=== PATIENT | female | born 1995 | race Caucasian/White ===

== ENCOUNTER 2017-02-11 10:19 | Emergency (ER) | payer BC ==
[2017-02-11 10:24] VITALS: BP 116/87; PULSE 86; RESP 20; TEMP 98.4
[2017-02-11] MEDS ORDERED: methylPREDNISolone SOD SUCCI 125 MG/2 ML VIAL IM ONE (10:54)
[2017-02-11] MEDS ORDERED: FAMOTIDINE 20 MG TAB PO STA (10:54)
--- NOTE | 2017-02-11 10:58 | ED ---
Skin/Abscess/FB HPI - General Chief complaint: Skin/Abscess/Foreign Body Stated complaint: Allergic reaction/Hives Time Seen by Provider: 02/11/17 10:35 Source: patient, RN notes reviewed Mode of arrival: ambulatory Limitations: no limitations - History of Present Illness Initial comments: Patient is a 21-year-old female presents to the emergency room for evaluation of rash. Patient states rash began about 2 days ago. Patient states that she has not been outside in any plants. Patient denies new soaps, detergents, body washes, shampoos, perfumes. Patient states that she recently got a new dog about a week ago. Patient denies any past history ALLERGIC reaction to pets. Patient does state that her dog was playing outside and may have gotten into poison andrew. Patient states that she's been the only one in the household with this rash. Patient states she tried taking Benadryl with no relief of symptoms. Patient states the rash is extremely itchy. Patient denies any new medications. Patient denies trying new foods. Patient denies any trouble breathing or swelling of the throat. - Related Data Previous Rx's Medication Instructions Recorded hydrOXYzine HCL [Atarax] 25 mg PO TID PRN #20 tab 02/11/17 predniSONE 10 mg PO DIRECTED #15 tab 02/11/17 Allergies Allergy/AdvReac Type Severity Reaction Status Date / Time codeine Allergy Unknown Verified 02/11/17 10:24 ibuprofen Allergy Unknown Verified 02/11/17 10:24 naproxen Allergy Unknown Verified 02/11/17 10:24 Review of Systems ROS Statement: Those systems with pertinent positive or pertinent negative responses have been documented in the HPI. ROS Other: All systems not noted in ROS Statement are negative. Past Medical History Past Medical History: No Reported History Additional Past Medical History / Comment(s): back pain History of Any Multi-Drug Resistant Organisms: None Reported Past Surgical History: Section Past Anesthesia/Blood Transfusion Reactions: No Reported Reaction Past Psychological History: Anxiety, Depression Additional Psychological History / Comment(s): overdose states unintentional admited to xanax and flexeril when questioned further states took adderal two days ago Smoking Status: Current every day smoker Past Alcohol Use History: Occasional Past Drug Use History: Prescription Drug Abuse Additional Drug Use History / Comment(s): states took some abilify of moms and adderol denies street or recreational drug usage General Exam - General Exam Comments Initial Comments: Sitting in exam room, no acute distress. Limitations: no limitations General appearance: alert, in no apparent distress Head exam: Present: atraumatic, normocephalic, normal inspection Eye exam: Present: normal appearance ENT exam: Present: normal exam Neck exam: Present: normal inspection Respiratory exam: Present: normal lung sounds bilaterally. Absent: respiratory distress Cardiovascular Exam: Present: regular rate, normal rhythm, normal heart sounds Extremities exam: Present: normal inspection Back exam: Present: normal inspection Neurological exam: Present: alert, oriented X3, CN II-XII intact, normal gait Psychiatric exam: Present: normal affect, normal mood Skin exam: Present: warm, dry, urticaria (Multiple urticaria over bilateral arms , abdomen, legs) Course Vital Signs 02/11/17 10:22 Temperature 98.4 F Pulse Rate 86 Respiratory 20 Rate Blood Pressure 116/87 O2 Sat by Pulse 100 Oximetry Medical Decision Making - Medical Decision Making Patient is a 21-year-old female presents to the emergency room for evaluation of rash. Rash consistent with hives or possible contact dermatitis. Patient was sent home with prednisone and Atarax. Advised patient to follow-up with primary care provider. Patient states she understands everything that was discussed with her. Return parameters discussed. Case discussed with Dr. Marie. Disposition Clinical Impression: Urticaria, Contact dermatitis Disposition: HOME SELF-CARE Condition: Good Instructions: Urticaria (ED) Additional Instructions: Begin taking prednisone tomorrow as directed. Take Atarax as needed for itching. Cool showers/baths. Please follow up with primary care provider in 1- 2 days. If any new symptom arises or symptoms worsen, return to ER as soon as possible. Prescriptions: hydrOXYzine HCL [Atarax] 25 mg PO TID PRN #20 tab PRN Reason: Itching predniSONE 10 mg PO DIRECTED #15 tab Referrals: Crispin Wiggins MD [Primary Care Provider] - 1-2 days Time of Disposition: 11:14
== END 2017-02-11 11:21 | disposition home or self-care (01) ==
LOC: EC 10:19
DX: L25.9 Unspecified contact dermatitis, unspecified cause (principal); L50.9 Urticaria, unspecified; F17.200 Nicotine dependence, unspecified, uncomplicated; Z88.5 Allergy status to narcotic agent; Z88.6 Allergy status to analgesic agent
CPT/HCPCS: 99282; 96372; J2930

== ENCOUNTER 2018-12-04 14:56 | Emergency (ER) | payer BC, OTHER ==
[2018-12-04 15:03] VITALS: RESP 18; TEMP 98.3
[2018-12-04 16:12] LABS: Appearance,Urine Cloudy (Clear); Bilirubin,Urine Negative (Negative); Blood,Urine Negative (Negative); Color,Urine Yellow; Glucose,Urine (UA) Negative (Negative); Ketones,Urine Negative (Negative); Leukocyte Esterase,Urine Small (Negative); Mucus,Urine Rare /hpf; Nitrite,Urine Negative (Negative); Protein,Urine Trace (Negative); RBC,Urine 3 /hpf (0-5); Specific Gravity,Urine 1.028 (1.001-1.035); Squamous Epithelial Cell,Urine 21 /hpf (0-4)
--- NOTE | 2018-12-04 16:12 | ED ---
Abdominal Pain HPI - General Chief Complaint: Abdominal Pain Stated Complaint: 18 Weeks preg, not feeling baby move, back pain Time Seen by Provider: 12/04/18 15:12 Source: patient, RN notes reviewed, old records reviewed Mode of arrival: ambulatory Limitations: no limitations - History of Present Illness Initial Comments: Patient is a 23-year-old female, . Patient reports that her FORENSIC SCIENTIST is Dr. Licona. She reports that she recently got out of prison this weekend. She has had previous ultrasounds in early October for this . They confirmed treatment of . She states she is approximately 18 weeks. Patient states that today she's been having immense stress. She complains of some lower back pain. She questions that could be related to where she was sleeping over the weekend. She's been under immense stress as well because her grandfather is in critical care at this time. Patient states she has no vaginal bleeding or discharge. - Related Data Home Medications Medication Instructions Recorded Confirmed Vtd-Qiss-Kuosd Acid 1 cap PO HS 12/04/18 12/04/18 [-U Capsule (formulary)] Previous Rx's Medication Instructions Recorded Cephalexin [Keflex] 500 mg PO BID #14 cap 12/04/18 Allergies Allergy/AdvReac Type Severity Reaction Status Date / Time No Known Allergies Allergy Verified 12/04/18 15:34 Review of Systems ROS Statement: Those systems with pertinent positive or pertinent negative responses have been documented in the HPI. ROS Other: All systems not noted in ROS Statement are negative. Past Medical History Past Medical History: Seizure Disorder Additional Past Medical History / Comment(s): back pain History of Any Multi-Drug Resistant Organisms: None Reported Past Surgical History: Section Past Anesthesia/Blood Transfusion Reactions: No Reported Reaction Past Psychological History: Anxiety, Depression Smoking Status: Current every day smoker Past Alcohol Use History: None Reported Past Drug Use History: Prescription Drug Abuse General Exam - General Exam Comments Initial Comments: 23-year-old female. Alert and oriented. Patient appears in no acute distress. Limitations: no limitations General appearance: alert, in no apparent distress Head exam: Present: atraumatic, normocephalic, normal inspection Eye exam: Present: normal appearance, PERRL, EOMI. Absent: scleral icterus, conjunctival injection, periorbital swelling ENT exam: Present: normal exam, mucous membranes moist Neck exam: Present: normal inspection. Absent: tenderness, meningismus, lymphadenopathy Respiratory exam: Present: normal lung sounds bilaterally. Absent: respiratory distress, wheezes, rales, rhonchi, stridor Cardiovascular Exam: Present: regular rate, normal rhythm, normal heart sounds. Absent: systolic murmur, diastolic murmur, rubs, gallop, clicks GI/Abdominal exam: Present: soft, other (Protuberant abdomen facility 18 weeks .) Extremities exam: Present: normal inspection, full ROM, normal capillary refill. Absent: tenderness, pedal edema, joint swelling, calf tenderness Back exam: Present: normal inspection Neurological exam: Present: alert, oriented X3, CN II-XII intact Psychiatric exam: Present: normal affect, normal mood Skin exam: Present: warm, dry, intact, normal color. Absent: rash Course Vital Signs 12/04/18 14:59 Temperature 98.3 F Pulse Rate 94 Respiratory 18 Rate Blood Pressure 120/74 O2 Sat by Pulse 100 Oximetry - Reevaluation(s) Reevaluation #1: 12/04/18 16:11 I completed transabdominal ultrasound on Patient. heart tones were 1 55 bpm. Fetus was intrauterine and moving all extremities. Patient was pleased with ultrasound imaging. Medical Decision Making - Medical Decision Making 23-year-old female presents emergency department today for concerns of feeling her baby move. She is 18 weeks . She is spent the night in prison and complains some lower back pain. Likely related to where she slept. Patient also reports that she's had no vaginal bleeding or discharge. She does complain the Dr. Licona. At this time Patient is mainly concerned was seeing her baby's heart rate she felt like it didn't move today. I did obtain a ultrasound at bedside myself. Patient still heart tones were 155 beats were minute. Fetus was active and moving. Patient was pleased to seeing these ultrasound reports. She is adamant she has no vaginal bleeding or discharge. She plans to see Dr. Licona next week. I did check a urine sample on the Patient. Urine sample did have some leukocyte esterase and epithelial cells. This time we'll put the Patient on Keflex and with urine culture pending. Discussed Patient with her FORENSIC SCIENTIST and return parameters were discussed. - Lab Data Lab Results 12/04/18 Range/Units 13:52 Urine Color Yellow Urine Appearance Cloudy H (Clear) Urine pH 6.0 (5.0-8.0) Ur Specific [place] 1.028 (1.001-1.035) Urine Protein Trace H (Negative) Urine Glucose (UA) Negative (Negative) Urine Ketones Negative (Negative) Urine Blood Negative (Negative) Urine Nitrite Negative (Negative) Urine Bilirubin Negative (Negative) Urine Urobilinogen 2.0 (<2.0) mg/dL Ur Leukocyte Esterase Small H (Negative) Urine RBC 3 (0-5) /hpf Urine WBC 4 (0-5) /hpf Ur Squamous Epith Cells 21 H (0-4) /hpf Urine Mucus Rare H (None) /hpf Disposition Clinical Impression: 18 weeks gestation of , Asymptomatic bacteriuria during Disposition: HOME SELF-CARE Condition: Good Instructions (If sedation given, give patient instructions): Urinary Tract Inf ection in (ED) Additional Instructions: Patient advised to rest, increase fluid intake. Patient showed take Tylenol for pain. Follow-up with your FORENSIC SCIENTIST. If there is any vaginal bleeding or abnormal discharge please return for reevaluation. Prescriptions: Cephalexin [Keflex] 500 mg PO BID #14 cap Is patient prescribed a controlled substance at d/c from ED?: No Referrals: Evelin Reyes MD [Primary Care Provider] - 1-2 days Time of Disposition: 16:15
[2018-12-04 16:24] VITALS: BP 124/86; PULSE 86
== END 2018-12-04 16:24 | disposition home or self-care (01) ==
LOC: EC 14:56
DX: O99.89 Other specified diseases and conditions complicating pregnancy, childbirth and the puerperium (principal); R82.71 Bacteriuria; M54.5 Low back pain; R10.30 Lower abdominal pain, unspecified; O99.332 Smoking (tobacco) complicating pregnancy, second trimester; F17.200 Nicotine dependence, unspecified, uncomplicated; Z3A.18 18 weeks gestation of pregnancy
CPT/HCPCS: 81001; 99284

== ENCOUNTER 2019-01-07 14:34 | Outpatient (CLI) | payer OTHER ==
[2019-01-07 15:40] VITALS: BP 117/70; PULSE 69; RESP 16; TEMP 97.7
--- NOTE | 2019-01-13 10:12 | P.MSEPDOC ---
Presenting Problems - Arrival Data Date of Arrival on Unit: 01/07/19 Time of Arrival on Unit: 14:35 Mode of Transport: Ambulatory - Complaint OB-Reason for Admission/Chief Complaint: Pain Comment: sharp shooting vaginal pain, lower back pain Medical History - Information : 4 Para: 1 Term: 0 : 0 Abortions: Spontaneous or Elective: 2 Number of Living Children: 1 - Gestational Age Gestational Age by DEDE (wks/days): 23 Weeks and 4 Days - History Complications: Prior Review of Systems - Review of Systems Constitutional: No problems Breast: No problems ENT: No problems Cardiovascular: No problems Respiratory: No problems Gastrointestinal: No problems Genitourinary: No problems Musculoskeletal: No problems Neurological: No problems Skin: No problems Vital Signs - Temperature Temperature: 97.7 F Temperature Source: Temporal Artery Scan - Pulse Right Sitting Brachial Pulse Rate: 69 Pulse Assessment Method: Automatic Cuff - Respirations Respiratory Rate: 16 Oxygen Delivery Method: Room Air O2 Sat by Pulse Oximetry: 98 - Blood Pressure Right Arm Sitting Blood Pressure: 117/70 Blood Pressure Mean: 85 Blood Pressure Source: Automatic Cuff Medical Screen Scoring (Pre) - Cervical Exam Dilation: Exam Deferred Effacement: Exam Deferred Membranes: Intact - Uterine Contractions Frequency: N/A Duration: N/A Intensity: N/A - Maternal Vital Signs Maternal Temperature: N/A Maternal Blood Pressure: N/A Signs of Preeclampsia: N/A Maternal Respirations: N/A - Pain Assessment Pain Location and Character: Lower, Back, Abdomen Pain Scale Used: Numeric (1 - 10) Pain Intensity: 8 Pain Management Goal: 0 Pain Description: Aching, Shooting Pain Radiation Location: vagina Pain Frequency: Intermittent Pain Duration: 16 Pain Duration Units: Hours Pain Behavior: None Exhibited Effects of Pain: 0 Pain Aggravating Factors: None - Maternal Trauma Maternal Trauma: N/A - Assessment Baseline FHR: 145 Heart Rate - NICHD Category: Category I (Normal) = 0 Position: N/A Station: N/A - Total Score Total Score (Pre): 0 - Level of Risk Level of Risk: Low (0-5) Physician Notification (Pre) - Physician Notified Physician Notified Date: 01/07/19 Physician Notified Time: 15:00 Physician/Practitioner Notifed:: dr Last Spoke With: Dr Tremp New Order Received: Yes (discharge with instructions) Disposition - Disposition OB Disposition: Discharge to home Discharge Date: 01/07/19 Discharge Time: 15:10 I agree with the RN Medical Screening Exam: Yes Risk & Benefit of care provided described in d/c instruction: Yes Diagnosis: PELVIC AND PERINEAL PAIN
== END 2019-01-07 15:10 | disposition home or self-care (01) ==
LOC: FBPOP 14:34
PROVIDERS: ATTEND Obstetrics & Gynecology Obstetrics
DX: O26.892 Other specified pregnancy related conditions, second trimester (principal); R10.2 Pelvic and perineal pain; Z3A.23 23 weeks gestation of pregnancy
CPT/HCPCS: 99213

== ENCOUNTER 2019-01-17 13:18 | Emergency (ER) | payer OTHER ==
[2019-01-17 13:23] VITALS: BP 123/76; PULSE 95; RESP 20; TEMP 97.7
[2019-01-17] MEDS ORDERED: predniSONE 50 MG TAB PO STA (13:50)
[2019-01-17] MEDS ORDERED: FAMOTIDINE 20 MG TAB PO STA (13:50)
--- NOTE | 2019-01-17 13:53 | ED ---
Skin/Abscess/FB HPI - General Chief complaint: Skin/Abscess/Foreign Body Stated complaint: Hives 23 weeks preg Time Seen by Provider: 01/17/19 13:30 Source: patient Mode of arrival: ambulatory Limitations: no limitations - History of Present Illness Initial comments: 23-year-old female patient who is 23 weeks presents to the emergency department today for evaluation of hives. Patient states that this started 2 days ago. States she has been taking Benadryl every 6 hours and it does seem to help symptoms for a short time. 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 Patient states she is also been on Flagyl for bacterial vaginosis. This is a first-time she's been on this medication. States this medication is completed. She denies any lip or tongue swelling with this. Denies any shortness of breath. Denies any abdominal pain, nausea, vomiting. Denies any vesicles. Patient denies any recent fever, chills, chest pain, abdominal pain, nausea, vomiting, diarrhea, constipation, back pain, numbness, tingling, dizziness, weakness, hematuria, dysuria, urinary urgency, urinary frequency, headache, visual changes, or any other complaints. - Related Data Home Medications Medication Instructions Recorded Confirmed Caf-Sptc-Gnzmk Acid 1 cap PO HS 12/04/18 01/17/19 [-U Capsule (formulary)] diphenhydrAMINE [Benadryl] 25 - 50 mg PO Q4H PRN 01/17/19 01/17/19 Previous Rx's Medication Instructions Recorded Famotidine [Pepcid] 20 mg PO DAILY #3 tablet 01/17/19 predniSONE 50 mg PO DAILY #3 tab 01/17/19 Allergies Allergy/AdvReac Type Severity Reaction Status Date / Time No Known Allergies Allergy Verified 01/17/19 13:59 Review of Systems ROS Statement: Those systems with pertinent positive or pertinent negative responses have been documented in the HPI. ROS Other: All systems not noted in ROS Statement are negative. Past Medical History Past Medical History: Seizure Disorder Additional Past Medical History / Comment(s): back pain History of Any Multi-Drug Resistant Organisms: None Reported Past Surgical History: Section Past Anesthesia/Blood Transfusion Reactions: No Reported Reaction Past Psychological History: Anxiety, Depression Smoking Status: Current every day smoker Past Alcohol Use History: None Reported Past Drug Use History: None Reported General Exam Limitations: no limitations General appearance: alert, in no apparent distress, other (This is a well- developed, well-nourished adult female patient in no acute distress. Vital signs upon presentation are temperature 97.7F, pulse 95, respirations 20, blood pressure 123/76, pulse ox 98% on room air.) Eye exam: Present: normal appearance, PERRL, EOMI. Absent: scleral icterus, conjunctival injection, periorbital swelling ENT exam: Present: normal exam, normal oropharynx, mucous membranes moist Respiratory exam: Present: normal lung sounds bilaterally. Absent: respiratory distress, wheezes, rales, rhonchi, stridor Cardiovascular Exam: Present: regular rate, normal rhythm, normal heart sounds. Absent: systolic murmur, diastolic murmur, rubs, gallop, clicks GI/Abdominal exam: Present: soft, normal bowel sounds. Absent: distended, tenderness, guarding, rebound, rigid Neurological exam: Present: alert, oriented X3, CN II-XII intact Psychiatric exam: Present: normal affect, normal mood Skin exam: Present: warm, dry, intact, normal color, rash (Urticarial type rash noted to the trunk and face. Lesions are non-petechial, nonvesicular. Minimal surrounding erythema. No drainage noted.) Course Vital Signs 01/17/19 13:20 Temperature 97.7 F Pulse Rate 95 Respiratory 20 Rate Blood Pressure 123/76 O2 Sat by Pulse 98 Oximetry Medical Decision Making - Medical Decision Making 23-year-old female patient presents to the emergency department today for evaluation of urticarial type rash has been present for the last 2 days. She has been taking Benadryl intermittently which does seem to help somewhat. Patient believes this may have been from exposure to new cleaning products or antibiotic she was taking. She is not having any lip or tongue swelling. No evidence of angioedema. No shortness of breath. She will be given a short course of steroids and started on Pepcid. She is urged to continue taking Benadryl every 6 hours as needed. She is instructed to follow-up with her primary care physician for recheck in 1-2 days. Return parameters discussed in detail. She verbalizes understanding and agrees with this plan. Disposition Clinical Impression: Urticaria Disposition: HOME SELF-CARE Condition: Good Instructions (If sedation given, give patient instructions): Urticaria (ED) Additional Instructions: Continue taking Benadryl every 6 hours as needed. Start taking a steroid and Pepcid. Follow-up with your primary care physician for recheck and possible referral for ALLERGY testing. Return to the emergency department immediately for any new, worsening, or concerning symptoms. Prescriptions: Famotidine [Pepcid] 20 mg PO DAILY #3 tablet predniSONE 50 mg PO DAILY #3 tab Is patient prescribed a controlled substance at d/c from ED?: No Referrals: Evelin Reyes MD [Primary Care Provider] - 1-2 days Time of Disposition: 13:52
== END 2019-01-17 14:08 | disposition home or self-care (01) ==
LOC: EC 13:18
DX: O99.712 Diseases of the skin and subcutaneous tissue complicating pregnancy, second trimester (principal); L50.9 Urticaria, unspecified; O99.332 Smoking (tobacco) complicating pregnancy, second trimester; F17.200 Nicotine dependence, unspecified, uncomplicated; Z98.890 Other specified postprocedural states; Z3A.23 23 weeks gestation of pregnancy
CPT/HCPCS: 99282; J7512

== ENCOUNTER → 2019-03-28 | Outpatient (CLI) | payer OTHER ==
--- NOTE | 2019-03-28 14:50 | US ---
EXAMINATION TYPE: US OB >= 14 wk fetus DATE OF EXAM: 03/28/2019 COMPARISON: None CLINICAL HISTORY: Z34.80 SUPERVISION OF OTHER NORMAL US order for growth TECHNIQUE: Transabdominal (TA) GESTATIONAL AGE / DATING Physician Established: (35 weeks/0 days) EDC: 05/02/2019 Dates by LMP: Unknown Dates by First Scan: No prior Dates by Current Scan: (34 weeks/1 days) EDC: 05/08/2019 SURVEY IUP: Single PLACENTA: Anterior PREVIA: No Previa MEHNAZ: 16.6 cm Normal CERVICAL LENGTH (transabdominal: norm > 3.0cm): 3.1 cm BIOMETRY PRESENTATION: Vertex BPD: 8.6 cm 34 weeks / 5 days HC: 31.4 cm 35 weeks / 2 days AC: 29.4 cm 33 weeks / 3 days FL: 6.3 cm 32 weeks / 5 days ESTIMATED WEIGHT IN GRAMS: 2201 grams ESTIMATED WEIGHT IN LBS/OZ: 4 lbs. 14 oz. WEIGHT PERCENTAGE BASED ON ESTABLISHED DATES: 12% HC/AC: 1.07 Normal FL/AC: 21 Normal HEART RATE: 143 bpm RHYTHM: Normal Single live intrauterine gestation is present. Normal cephalad presentation is seen. No cervical thin anshu. No ultrasound evidence for placenta previa. Amniotic fluid index is calculated within normal li mits. biometric measurements are concordant and felt lower limits of normal. IMPRESSION: As above.
== END | disposition home or self-care (01) ==
LOC: RADUSWWP 14:12
PROVIDERS: ATTEND Obstetrics & Gynecology
DX: Z34.80 Encounter for supervision of other normal pregnancy, unspecified trimester (principal)
CPT/HCPCS: 76805

== ENCOUNTER 2019-09-16 23:27 | Emergency (ER) | payer OTHER ==
[2019-09-17 00:06] VITALS: BP 94/69; PULSE 103; RESP 20; TEMP 99.2
== END 2019-09-17 00:54 | disposition left against medical advice (07) ==
LOC: EC 23:27
DX: R10.9 Unspecified abdominal pain (principal); R11.2 Nausea with vomiting, unspecified; R05 Cough; Z53.21 Procedure and treatment not carried out due to patient leaving prior to being seen by health care provider
CPT/HCPCS: 99499

== ENCOUNTER 2020-08-25 14:59 | Emergency (ER) | payer BC, OTHER ==
[2020-08-25 15:06] VITALS: RESP 18
--- NOTE | 2020-08-25 15:31 | ED ---
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 She reports that she did have positive test but does not know how far along she is. Her last menstrual period was July 17. Patient states that she has had no abnormal vaginal bleeding. is a female. Patient states that she's had no dysuria. Denies changes in bowel habits. She plans to follow with Dr. Kingsley. - Related Data Home Medications Medication Instructions Recorded Confirmed No Known Home Medications 08/25/20 08/25/20 Allergies Allergy/AdvReac Type Severity Reaction Status Date / Time No Known Allergies Allergy Verified 08/25/20 16:43 Review of Systems ROS Statement: Those systems with pertinent positive or pertinent negative responses have been documented in the HPI. ROS Other: All systems not noted in ROS Statement are negative. Past Medical History Past Medical History: Seizure Disorder Additional Past Medical History / Comment(s): back pain History of Any Multi-Drug Resistant Organisms: None Reported Past Surgical History: Section Past Anesthesia/Blood Transfusion Reactions: No Reported Reaction Past Psychological History: Anxiety, Depression Past Alcohol Use History: None Reported Past Drug Use History: None Reported General Exam - General Exam Comments Initial Comments: Is a 24-year-old female. No distress Limitations: no limitations General appearance: alert, in no apparent distress Head exam: Present: atraumatic, normocephalic, normal inspection Eye exam: Present: normal appearance, PERRL, EOMI. Absent: scleral icterus, conjunctival injection, periorbital swelling ENT exam: Present: normal exam, mucous membranes moist Neck exam: Present: normal inspection. Absent: tenderness, meningismus, lymphadenopathy Respiratory exam: Present: normal lung sounds bilaterally. Absent: respiratory distress, wheezes, rales, rhonchi, stridor Cardiovascular Exam: Present: regular rate GI/Abdominal exam: Present: soft, tenderness (Minimal left lower quadrant tenderness), normal bowel sounds. Absent: distended, guarding, rebound, rigid External exam: Present: normal external exam Speculum exam: Present: vaginal discharge (faint). Absent: normal speculum exam By manual exam: Present: normal by manual exam. Absent: adnexal mass Extremities exam: Present: normal inspection, full ROM, normal capillary refill. Absent: tenderness, pedal edema, joint swelling, calf tenderness Back exam: Present: normal inspection Neurological exam: Present: alert, oriented X3, CN II-XII intact Psychiatric exam: Present: normal affect, normal mood Course Vital Signs 08/25/20 08/25/20 15:03 17:17 Temperature 99.0 F 98.8 F Pulse Rate 73 67 Respiratory 18 18 Rate Blood Pressure 126/75 121/80 O2 Sat by Pulse 99 100 Oximetry Medical Decision Making - Medical Decision Making 24-year-old female with last menstrual period on July 17 presents emergency room today with left-sided lower abdominal discomfort and cramping. Patient had lab work obtained. She has no vaginal bleeding. No adnexal tenderness on exam did have minimal left-sided lower abdominal tenderness to palpation. Patient has lab work shows Rh+. Serum hCG is 17,000. Ultrasound showed suspected gestational sac within the uterus but there is also noted 1.7 cm left ovarian cyst. Cannot completely exclude ectopic . I discussed the case with Dr. Palaico recommends repeat hCG in 2 days and have prompt follow-up with her in the office. Patient was given a prescription to have her blood work redrawn in 2 days. I discussed return parameters including heavy bleeding or worsening abdominal pain. - Lab Data Result diagrams: 08/25/20 15:59 Lab Results 08/25/20 08/25/20 08/25/20 Range/Units 15:59 15:59 15:59 WBC 7.6 (3.8-10.6) k/uL RBC 4.58 (3.80-5.40) m/uL Hgb 14.3 (11.4-16.0) gm/dL Hct 41.6 (34.0-46.0) % MCV 90.7 (80.0-100.0) fL MCH 31.2 (25.0-35.0) pg MCHC 34.4 (31.0-37.0) g/dL RDW 12.4 (11.5-15.5) % Plt Count 247 (150-450) k/uL MPV 7.5 Neutrophils % 62 % Lymphocytes % 29 % Monocytes % 4 % Eosinophils % 3 % Basophils % 1 % Neutrophils # 4.7 (1.3-7.7) k/uL Lymphocytes # 2.2 (1.0-4.8) k/uL Monocytes # 0.3 (0-1.0) k/uL Eosinophils # 0.2 (0-0.7) k/uL Basophils # 0.1 (0-0.2) k/uL HCG, Quant mIU/mL Urine Color Yellow Urine Appearance Cloudy H (Clear) Urine pH 6.5 (5.0-8.0) Ur Specific [place] 1.023 (1.001-1.035) Urine Protein Trace H (Negative) Urine Glucose (UA) Negative (Negative) Urine Ketones Negative (Negative) Urine Blood Negative (Negative) Urine Nitrite Negative (Negative) Urine Bilirubin Negative (Negative) Urine Urobilinogen 2.0 (<2.0) mg/dL Ur Leukocyte Esterase Large H (Negative) Urine RBC 1 (0-5) /hpf Urine WBC 10 H (0-5) /hpf Ur Squamous Epith Cells 1 (0-4) /hpf Urine Bacteria Rare H (None) /hpf Urine Mucus Many H (None) /hpf Urine HCG, Qual Detected (Not Detectd) Trichomonas Ag (Rapid) (Negative) Blood Type Blood Type Recheck Bld Type Recheck Status 08/25/20 08/25/20 08/25/20 Range/Units 15:59 15:59 17:21 WBC (3.8-10.6) k/uL RBC (3.80-5.40) m/uL Hgb (11.4-16.0) gm/dL Hct (34.0-46.0) % MCV (80.0-100.0) fL MCH (25.0-35.0) pg MCHC (31.0-37.0) g/dL RDW (11.5-15.5) % Plt Count (150-450) k/uL MPV Neutrophils % % Lymphocytes % % Monocytes % % Eosinophils % % Basophils % % Neutrophils # (1.3-7.7) k/uL Lymphocytes # (1.0-4.8) k/uL Monocytes # (0-1.0) k/uL Eosinophils # (0-0.7) k/uL Basophils # (0-0.2) k/uL HCG, Quant 05774.0 mIU/mL Urine Color Urine Appearance (Clear) Urine pH (5.0-8.0) Ur Specific [place] (1.001-1.035) Urine Protein (Negative) Urine Glucose (UA) (Negative) Urine Ketones (Negative) Urine Blood (Negative) Urine Nitrite (Negative) Urine Bilirubin (Negative) Urine Urobilinogen (<2.0) mg/dL Ur Leukocyte Esterase (Negative) Urine RBC (0-5) /hpf Urine WBC (0-5) /hpf Ur Squamous Epith Cells (0-4) /hpf Urine Bacteria (None) /hpf Urine Mucus (None) /hpf Urine HCG, Qual (Not Detectd) Trichomonas Ag (Rapid) Negative (Negative) Blood Type A Positive Blood Type Recheck A Pos Bld Type Recheck Status No - Radiology Data Radiology results: report reviewed Ultrasound findings here to be at too early to visualize intrauterine with spontaneous as an differential an ectopic is not excluded. Serial beta hCG and ultrasound follow-up is advised. Disposition Clinical Impression: Early stage of , Abdominal cramping affecting Disposition: HOME SELF-CARE Condition: Good Instructions (If sedation given, give patient instructions): Abdominal Pain in (ED) Additional Instructions: Advised to repeat hCG levels in 2 days. Follow-up with [employer] Dr. Palacio in 2 days for results. Return to the emergency department if any alarming signs or symptoms occur. Is patient prescribed a controlled substance at d/c from ED?: No Referrals: Evelin Reyes MD [Primary Care Provider] - 1-2 days Ely Palacio DO [Doctor of Osteopathic Medicine] - 1-2 days Time of Disposition: 18:12
[2020-08-25 16:04] LABS: Basophils # (A) 0.1 k/uL (0-0.2); Basophils % (A) 1 %; Eosinophils # (A) 0.2 k/uL (0-0.7); Eosinophils % (A) 3 %; HCT 41.6 % (34.0-46.0); HGB 14.3 gm/dL (11.4-16.0); Lymphocytes # (A) 2.2 k/uL (1.0-4.8); Lymphocytes % (A) 29 %; MCH 31.2 pg (25.0-35.0); MCHC 34.4 g/dL (31.0-37.0); MCV 90.7 fL (80.0-100.0); Mean Platelet Volume 7.5; Monocytes # (A) 0.3 k/uL (0-1.0); Monocytes % (A) 4 %; Neutrophils # (A) 4.7 k/uL (1.3-7.7); Neutrophils % (A) 62 %; Platelet Count 247 k/uL (150-450); RBC 4.58 m/uL (3.80-5.40); RDW 12.4 % (11.5-15.5); WBC 7.6 k/uL (3.8-10.6)
[2020-08-25 16:14] LABS: Appearance,Urine Cloudy (Clear); Bacteria,Urine Rare /hpf; Bilirubin,Urine Negative (Negative); Blood,Urine Negative (Negative); Color,Urine Yellow; Glucose,Urine (UA) Negative (Negative); Ketones,Urine Negative (Negative); Leukocyte Esterase,Urine Large (Negative); Mucus,Urine Many /hpf; Nitrite,Urine Negative (Negative); PH, Urine 6.5 (5.0-8.0); Protein,Urine Trace (Negative); RBC,Urine 1 /hpf (0-5); Specific Gravity,Urine 1.023 (1.001-1.035); Squamous Epithelial Cell,Urine 1 /hpf (0-4); WBC,Urine 10 /hpf (0-5)
--- NOTE | 2020-08-25 16:45 | US ---
EXAMINATION TYPE: Transabdominal DATE OF EXAM: 08/25/2020 4:31 PM COMPARISON: NONE CLINICAL HISTORY: r/o ectopic, left abdominal pain. EXAM PERFORMED: Transabdominal (TA) EXAM MEASUREMENTS: GESTATIONAL AGE / DATING Physician Established: Not yet established Dates by LMP: (5 weeks/4 days) EDC: 04-23-21 Dates by First Scan: No previous this is first scan Dates by Current Scan for: (5 weeks/1 days) EDC: 04/26/21 MATERNAL ANATOMY Uterus: 8.8 x 6.0 x 6.8cm Right Ovary: 3.1 x 1.8 x 2.2cm Left Ovary: 4.3 x 2.4 x 2.5cm Post CDS / Adnexa: wnl Presence of free fluid: no Presence of corpus luteal cyst: 1.9 x 1.3 x 1.5cm Presence of subchorionic bleed: no GESTATION / SURVEY MSD: 1.0 (5 weeks/1 days) Heterogeneous anteverted uterus. Prominent thickened poorly defined endometrium. Anteriorly in the en dometrium there is curvilinear anechoic lesion measuring 8 x 12 x 11 mm could reflect early gestation al sac. No yolk sac or pole. No free fluid. Both ovaries are identified. Peripheral 1.9 cm lesion left ovary could reflect corpus luteal cyst. No suspicious extraovarian adnexal masses. Date of LMP: 07/17/20 Beta HcG (if available): Not available at this time IMPRESSION: Findings favored too early to visualize intrauterine but spontaneous i s in differential and ectopic is not entirely excluded. Serial beta hCG and ultrasound foll ow-up is advised.
[2020-08-25 17:24] VITALS: BP 121/80; PULSE 67; TEMP 98.8
[2020-08-26 15:05] LABS: C. trachomatis,PCR Negative (Neg,Equiv); Chlamydia trachomatis Source Vagina; N. gonorrhoeae,PCR Negative (Neg,Equiv); Neisseria Source Vagina
== END 2020-08-25 18:18 | disposition home or self-care (01) ==
LOC: EC 14:59
DX: O34.80 Maternal care for other abnormalities of pelvic organs, unspecified trimester (principal); N83.202 Unspecified ovarian cyst, left side; R10.32 Left lower quadrant pain; Z3A.00 Weeks of gestation of pregnancy not specified
CPT/HCPCS: 36415; 76801; 81001; 81025; 84702; 85025; 86900; 86901; 87070; 87491; 87591; 87808; 99284

== ENCOUNTER → 2020-08-27 | Outpatient (CLI) | payer OTHER | END | disposition home or self-care (01) | LOC: LABWHC1 11:17 | PROVIDERS: ATTEND Physician Assistant Medical | DX: O20.0 Threatened abortion (principal) | CPT/HCPCS: 36415; 84702 ==

== ENCOUNTER 2020-08-29 14:45 | Emergency (ER) | payer OTHER ==
[2020-08-29 14:50] VITALS: RESP 18
--- NOTE | 2020-08-29 15:06 | ED ---
General Adult HPI - General Chief complaint: Vaginal Bleeding Stated complaint: Revisit 5 wks preg,Vaginal Bleeding Time Seen by Provider: 08/29/20 14:53 Source: patient Mode of arrival: ambulatory Limitations: no limitations - History of Present Illness Initial comments: 24 year-old female patient who is approximately 5 weeks presents to the emergency department today for evaluation of possible vaginal bleeding. Patient states that she was seen and evaluated here 4 days ago for left lower quadrant abdominal discomfort. States that she did have labs and ultrasound performed and results were questionable for possible miscarriage versus early . She did have repeat hCG drawn 2 days ago which did show an increase to 25,000 from 17,000. States that she was instructed to have another hCG drawn today, but the lab was closed. She states she started to have a light pink on the toilet paper with wiping so she became concerned and presented here for further evaluation. She denies any current abdominal pain or cramping. Denies hematuria, dysuria, urinary frequency, urinary urgency. States she has had sexual intercourse since her visit on Monday. Patient denies any recent rash, fever, chills, cough, shortness of breath, chest pain, nausea, vomiting, diarrhea, constipation, back pain, numbness, tingling, dizziness, weakness, headache, visual changes, or any other complaints. - Related Data Previous Rx's Medication Instructions Recorded Cephalexin [Keflex] 500 mg PO Q6H #28 cap 08/29/20 Allergies Allergy/AdvReac Type Severity Reaction Status Date / Time No Known Allergies Allergy Verified 08/29/20 14:50 Review of Systems ROS Statement: Those systems with pertinent positive or pertinent negative responses have been documented in the HPI. ROS Other: All systems not noted in ROS Statement are negative. Past Medical History Past Medical History: Seizure Disorder Additional Past Medical History / Comment(s): back pain History of Any Multi-Drug Resistant Organisms: None Reported Past Surgical History: Section Past Anesthesia/Blood Transfusion Reactions: No Reported Reaction Past Psychological History: Anxiety, Depression Smoking Status: Current every day smoker Past Alcohol Use History: None Reported Past Drug Use History: None Reported General Exam Limitations: no limitations General appearance: alert, in no apparent distress, other (Physical well- developed, well-nourished adult female patient in no acute distress. Vital signs upon presentation are temperature 98.4F, pulse 74, respirations 18, blood pressure 127/79, pulse ox 100% on room air.) ENT exam: Present: normal exam, normal oropharynx, mucous membranes moist Respiratory exam: Present: normal lung sounds bilaterally. Absent: respiratory distress, wheezes, rales, rhonchi, stridor Cardiovascular Exam: Present: regular rate, normal rhythm, normal heart sounds. Absent: systolic murmur, diastolic murmur, rubs, gallop, clicks GI/Abdominal exam: Present: soft, normal bowel sounds. Absent: distended, tenderness, guarding, rebound, rigid Neurological exam: Present: alert, oriented X3, CN II-XII intact Psychiatric exam: Present: normal affect, normal mood Skin exam: Present: warm, dry, intact, normal color. Absent: rash Course Vital Signs 08/29/20 08/29/20 14:47 17:00 Temperature 98.4 F 98.2 F Pulse Rate 74 70 Respiratory 18 18 Rate Blood Pressure 127/79 124/72 O2 Sat by Pulse 100 99 Oximetry Medical Decision Making - Medical Decision Making 24-year-old female patient who is G5, P2 with one elective and one spontaneous in the past presents to the emergency department today for evaluation of vaginal bleeding. Patient was seen and evaluated 4 days ago for left pelvic pain had hCG count of 17,000, questionable early on ultrasound. She had repeat hCG done 2 days ago which did show an increase to around 25,000. She returns today for light vaginal bleeding, she noticed slight pink discoloration to the toilet paper when she wiped. Physical examination revealed a soft nontender abdomen. Did review the results from last visit showed negative genital culture, negative STI testing. Repeat hCG today was 43,164. Urinalysis showed a cloudy appearance with trace protein, trace blood, positive nitrite, moderate leukocyte esterase, 8 white blood cells, 9 squamous epithelial cells, occasional bacteria. Ultrasound was repeated today did show possible early gestational sac. No adnexal mass to suggest ectopic. Patient is having no pain today. I did discuss findings and results with the patient. We did discuss threatened versus very early . She'll be treated with Keflex for urinary tract infection. She is given prescription to have repeat hCG drawn in 2 days, results will go to Dr. Palacio. She is instructed to follow-up with [facility] for recheck as soon as possible. Return parameters were discussed in detail. She verbalizes understanding and agrees with this plan. - Lab Data Lab Results 08/29/20 08/29/20 08/29/20 Range/Units 15:24 15:34 15:39 HCG, Quant 18239.1 mIU/mL Urine Color Yellow Urine Appearance Cloudy H (Clear) Urine pH 5.5 (5.0-8.0) Ur Specific [place] 1.029 (1.001-1.035) Urine Protein Trace H (Negative) Urine Glucose (UA) Negative (Negative) Urine Ketones Negative (Negative) Urine Blood Trace H (Negative) Urine Nitrite Positive H (Negative) Urine Bilirubin Negative (Negative) Urine Urobilinogen <2.0 (<2.0) mg/dL Ur Leukocyte Esterase Moderate H (Negative) Urine RBC 1 (0-5) /hpf Urine WBC 8 H (0-5) /hpf Ur Squamous Epith Cells 9 H (0-4) /hpf Urine Bacteria Occasional H (None) /hpf Urine Mucus Many H (None) /hpf Blood Type A Positive Blood Type Recheck A Pos Bld Type Recheck Status No - Radiology Data Radiology results: report reviewed, image reviewed Ultrasound was obtained. Report was reviewed in its entirety. Impression by Dr. Stewart shows possible early intrauterine . Follow-up recommended in 14 days to confirm a living fetus. No adnexal mass. Disposition Clinical Impression: Vaginal bleeding during , Threatened Disposition: HOME SELF-CARE Condition: Good Instructions (If sedation given, give patient instructions): Threatened Miscarriage (ED) Additional Instructions: Have repeat hCG performed in 2 days. Follow-up with your [facility] [facility] for recheck as soon as possible. Return to the emergency department for any new, worsening, or concerning symptoms. Prescriptions: Cephalexin [Keflex] 500 mg PO Q6H #28 cap Is patient prescribed a controlled substance at d/c from ED?: No Referrals: Evelin Reyes MD [Primary Care Provider] - 1-2 days Time of Disposition: 17:29
[2020-08-29 15:57] LABS: Appearance,Urine Cloudy (Clear); Bacteria,Urine Occasional /hpf; Bilirubin,Urine Negative (Negative); Blood,Urine Trace (Negative); Color,Urine Yellow; Glucose,Urine (UA) Negative (Negative); Ketones,Urine Negative (Negative); Leukocyte Esterase,Urine Moderate (Negative); Mucus,Urine Many /hpf; Nitrite,Urine Positive (Negative); PH, Urine 5.5 (5.0-8.0); Protein,Urine Trace (Negative); RBC,Urine 1 /hpf (0-5); Specific Gravity,Urine 1.029 (1.001-1.035); Squamous Epithelial Cell,Urine 9 /hpf (0-4); Urobilinogen,Urine <2.0 mg/dL (<2.0); WBC,Urine 8 /hpf (0-5)
[2020-08-29] MEDS ORDERED: CEPHALEXIN 500MG STARTER PACK 4 CAP BTL PO STA (16:42)
--- NOTE | 2020-08-29 17:26 | US ---
EXAMINATION TYPE: Transabdominal DATE OF EXAM: 08/29/2020 5:14 PM COMPARISON: NONE CLINICAL HISTORY: Vaginal bleeding early . light spotting, UTI, no pain EXAM PERFORMED: Transabdominal (TA) EXAM MEASUREMENTS: GESTATIONAL AGE / DATING Physician Established: Not yet established Dates by LMP: (6 weeks/1 days) EDC: 04/23/21 Dates by First Scan: (5 weeks/5 days) EDC: 04/26/21 - MSD Dates by Current Scan for: (6 weeks/3 days) EDC: 04/21/21 - MSD MATERNAL ANATOMY Uterus: 9.1 x 6.3 x 6.6cm Right Ovary: 3.0 x 1.4 x 1.5cm Left Ovary: 4.4 x 2.5 x 2.9cm Post CDS / Adnexa: free fluid posterior cul-de-sac/right adnexa Presence of free fluid: yes Presence of corpus luteal cyst: yes, left ovary = 2.4 x 2.3 x 2.5cm GESTATION / SURVEY MSD: 1.5cm (6 weeks/3 days) Yolk Sac (normal less than 6mm): not seen no evidence of pole at this time Date of LMP: 07/17/20 Beta HcG (if available): 53386 Heterogeneous uterus. Anechoic area within uterus ?gestational sac, no evidence of pole or yolk sac at this time. Recommend short term follow up IMPRESSION: Possible early intrauterine . Follow-up recommended in 14 days to confirm a living fetus. No adnexal mass.
[2020-08-29 17:40] VITALS: BP 124/72; PULSE 70; TEMP 98.2
== END 2020-08-29 17:41 | disposition home or self-care (01) ==
LOC: EC 14:45
DX: O20.0 Threatened abortion (principal); O20.9 Hemorrhage in early pregnancy, unspecified; O99.331 Smoking (tobacco) complicating pregnancy, first trimester; F17.200 Nicotine dependence, unspecified, uncomplicated; Z3A.01 Less than 8 weeks gestation of pregnancy
CPT/HCPCS: 36415; 76801; 81001; 84702; 86900; 86901; 99284

== ENCOUNTER → 2020-08-31 | Outpatient (CLI) | payer OTHER | END | disposition home or self-care (01) | LOC: LABWHC1 11:14 | PROVIDERS: ATTEND Nurse Practitioner | DX: Z34.81 Encounter for supervision of other normal pregnancy, first trimester (principal) | CPT/HCPCS: 36415; 84702 ==

== ENCOUNTER 2020-12-20 08:49 | Emergency (ER) | payer OTHER ==
[2020-12-20 08:59] VITALS: BP 112/74; PULSE 81; RESP 18; TEMP 97.9
[2020-12-20] MEDS ORDERED: ACETAMINOPHEN TAB 500 MG TAB PO STA (09:10)
--- NOTE | 2020-12-20 10:05 | ED ---
URI HPI - General Chief Complaint: Upper Respiratory Infection Stated Complaint: Covid exposure, 22wks preg Time Seen by Provider: 12/20/20 08:59 Source: patient, RN notes reviewed, old records reviewed Mode of arrival: ambulatory Limitations: no limitations - History of Present Illness Initial Comments: This is a 25 year old female whom is 20 weeks . She reports that she has had 3 days of left ear ache, sore throat and mild headache. She reports she has covid exposure and wants to be tested. She denies cough, shortness of breath and fever. She reports to taking tylenol. - Related Data Previous Rx's Medication Instructions Recorded Cephalexin [Keflex] 500 mg PO Q6H #28 cap 08/29/20 Fluticasone Nasal [place] [Flonase 1 spray EA NOSTRIL DAILY #1 bottle 12/20/20 Nasal [place]] Allergies Allergy/AdvReac Type Severity Reaction Status Date / Time No Known Allergies Allergy Verified 12/20/20 08:58 Review of Systems ROS Statement: Those systems with pertinent positive or pertinent negative responses have been documented in the HPI. ROS Other: All systems not noted in ROS Statement are negative. Past Medical History Past Medical History: Seizure Disorder Additional Past Medical History / Comment(s): back pain History of Any Multi-Drug Resistant Organisms: None Reported Past Surgical History: Section Past Anesthesia/Blood Transfusion Reactions: No Reported Reaction Past Psychological History: Anxiety, Depression Smoking Status: Current every day smoker Past Alcohol Use History: None Reported Past Drug Use History: None Reported General Exam - General Exam Comments Initial Comments: 25 year old female, no distress. Limitations: no limitations General appearance: alert, in no apparent distress Head exam: Present: atraumatic, normocephalic, normal inspection Eye exam: Present: normal appearance, PERRL, EOMI. Absent: scleral icterus, conjunctival injection, periorbital swelling ENT exam: Present: normal exam, mucous membranes moist. Absent: TM's normal bilaterally (fluid behind left TM. No erythema. ) Neck exam: Present: normal inspection. Absent: tenderness, meningismus, lymphadenopathy Respiratory exam: Present: normal lung sounds bilaterally. Absent: respiratory distress, wheezes, rales, rhonchi, stridor Cardiovascular Exam: Present: regular rate, normal rhythm, normal heart sounds. Absent: systolic murmur, diastolic murmur, rubs, gallop, clicks GI/Abdominal exam: Present: soft, normal bowel sounds. Absent: distended, tenderness, guarding, rebound, rigid Extremities exam: Present: normal inspection, full ROM, normal capillary refill. Absent: tenderness, pedal edema, joint swelling, calf tenderness Back exam: Present: normal inspection Neurological exam: Present: alert, oriented X3, CN II-XII intact Psychiatric exam: Present: normal affect, normal mood Skin exam: Present: warm, dry, intact, normal color. Absent: rash Course Vital Signs 12/20/20 08:56 Temperature 97.9 F Pulse Rate 81 Respiratory 18 Rate Blood Pressure 112/74 O2 Sat by Pulse 100 Oximetry Medical Decision Making - Medical Decision Making 25 year old female with ear pain, sore throat and covid exposure. She is 20 weeks . She has minimal fluid behind left TM. Advised to start de congestant nasal spray. She is advised to continue tylenol. Currently covid test is negative. Advised this can be a false negative as her symptoms are early. Discussed strict return parameters. - Lab Data Lab Results 12/20/20 Range/Units 09:24 Coronavirus (PCR) Not Detected (Not Detectd) Disposition Clinical Impression: Otalgia of right ear, Pharyngitis Disposition: HOME SELF-CARE Condition: Good Instructions (If sedation given, give patient instructions): Upper Respiratory Infection (ED) Additional Instructions: Take Tylenol for pain. Patient should use nasal spray decongestant. Follow up with PCP. If you have further worsening symptoms such as severe shortness of breath or cough return to ED. Prescriptions: Fluticasone Nasal [place] [Flonase Nasal [place]] 1 spray EA NOSTRIL DAILY #1 bottle Is patient prescribed a controlled substance at d/c from ED?: No Referrals: None,Stated [Primary Care Provider] - 1-2 days Nina Fish MD [REFERRING] - 1-2 days Time of Disposition: 10:00
== END 2020-12-20 10:17 | disposition home or self-care (01) ==
LOC: EC 08:49
DX: O99.512 Diseases of the respiratory system complicating pregnancy, second trimester (principal); J02.9 Acute pharyngitis, unspecified; H92.02 Otalgia, left ear; O99.891 Other specified diseases and conditions complicating pregnancy; O99.332 Smoking (tobacco) complicating pregnancy, second trimester; F17.200 Nicotine dependence, unspecified, uncomplicated; Z20.822 Contact with and (suspected) exposure to COVID-19; Z3A.20 20 weeks gestation of pregnancy
CPT/HCPCS: 87635; 99284

== ENCOUNTER 2023-02-22 12:00 | Emergency (ER) | payer OTHER ==
[2023-02-22 12:17] VITALS: RESP 18
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
--- NOTE | 2023-02-22 12:54 | XR ---
EXAMINATION TYPE: XR knee complete RT DATE OF EXAM: 02/22/2023 CLINICAL HISTORY: pain TECHNIQUE: Three views of the right knee are obtained. COMPARISON: None. FINDINGS: There is no acute fracture/dislocation. The tri-compartment joint spaces appear within no rmal limits. The overlying soft tissue appears unremarkable. IMPRESSION: There is no acute fracture or dislocation.ICD 10 NO FRACTURE, INITIAL EVALUATION
[2023-02-22 14:36] VITALS: BP 110/78; PULSE 70; TEMP 98.2
== END 2023-02-22 14:35 | disposition home or self-care (01) ==
LOC: EC 12:00
DX: M25.561 Pain in right knee (principal); Z86.59 Personal history of other mental and behavioral disorders; F17.290 Nicotine dependence, other tobacco product, uncomplicated; W21.31XA Struck by shoe cleats, initial encounter; Y93.64 Activity, baseball
CPT/HCPCS: 99283

== ENCOUNTER 2023-03-08 10:19 | Emergency (ER) | payer OTHER ==
--- NOTE | 2023-03-08 10:51 | ED ---
Abdominal Pain HPI - General Chief Complaint: Abdominal Pain Stated Complaint: abd pain, nausea Time Seen by Provider: 03/08/23 10:39 Source: patient, RN notes reviewed Mode of arrival: ambulatory Limitations: no limitations - History of Present Illness Initial Comments: Patient is a 27 year old female presenting to the ER with a chief complaint of abdominal pain. Patient states this has been going on for a couple of days and describes it as achy 3/10 pain. She endorses associated nausea but denies vomiting. Patient reports she has been using a heating pad with slight relief. Patient states she stopped taking her control about 5 months ago and her periods have been irregular since. She is unsure of her status. Denies abnormal bleeding or cramping. Denies history of abdominal surgeries besides 3 c-sections. Patient admits to having occasional constipation. Denies fevers, chills, nightsweats, shortness of breath, chest pain, or diarrhea. - Related Data Previous Rx's Medication Instructions Recorded Cephalexin [Keflex] 500 mg PO Q6H #28 cap 08/29/20 Fluticasone Nasal [place] [Flonase 1 spray EA NOSTRIL DAILY #1 bottle 12/20/20 Nas[place]] Allergies Allergy/AdvReac Type Severity Reaction Status Date / Time No Known Allergies Allergy Verified 03/08/23 10:29 Review of Systems ROS Statement: Those systems with pertinent positive or pertinent negative responses have been documented in the HPI. ROS Other: All systems not noted in ROS Statement are negative. Past Medical History Past Medical History: Seizure Disorder Additional Past Medical History / Comment(s): back pain History of Any Multi-Drug Resistant Organisms: None Reported Past Surgical History: Section Past Anesthesia/Blood Transfusion Reactions: No Reported Reaction Past Psychological History: Anxiety, Depression Smoking Status: Vaper Past Alcohol Use History: None Reported Past Drug Use History: None Reported General Exam Limitations: no limitations General appearance: alert, in no apparent distress Respiratory exam: Present: normal lung sounds bilaterally. Absent: respiratory distress, wheezes, rales, rhonchi, stridor Cardiovascular Exam: Present: regular rate, normal rhythm, normal heart sounds. Absent: systolic murmur, diastolic murmur, rubs, gallop, clicks GI/Abdominal exam: Present: soft, tenderness (mild LLQ/RLQ), normal bowel sounds Skin exam: Present: warm, dry, intact, normal color. Absent: rash Course Vital Signs 03/08/23 10:27 Temperature 98.4 F Pulse Rate 72 Respiratory 18 Rate Blood Pressure 116/70 O2 Sat by Pulse 98 Oximetry Medical Decision Making - Medical Decision Making Was pt. sent in by a medical professional or institution (, JOSE CARLOS, REINFORCING IRON AND REBAR WORKERS, urgent care, hospital, or group home...) When possible be specific @ -No Did you speak to anyone other than the patient for history (EMS, parent, family, police, friend...)? What history was obtained from this source @ -No Did you review nursing and triage notes (agree or disagree)? Why? @ -I reviewed and agree with nursing and triage notes Were old charts reviewed (outside hosp., previous admission, EMS record, old EKG, old radiological studies, urgent care reports/EKG's, group home records)? Report findings @ -No old charts were reviewed Differential Diagnosis (chest pain, altered mental status, abdominal pain women, abdominal pain men, vaginal bleeding, weakness, fever, dyspnea, syncope, headache, dizziness, GI bleed, back pain, seizure, CVA, palpatations, mental health, musculoskeletal)? @ -Differential Abdominal Pain Women: Appendicitis, Cholecystitis, diverticulosis, ischemic bowel, pancreatitis, hepatitis, UTI, gastroenteritis, AAA, incarcerated hernia, bowel obstruction, constipation, inflammatory bowel, hepatitis, peptic ulcer disease, splenic infarction, perforated viscus, vulvitis, ovarian torsion, PID, kidney stone, placenta abruption, this is not meant to be an all-inclusive listble EKG interpreted by me (3pts min.). @ -None X-rays interpreted by me (1pt min.). @ -None done CT interpreted by me (1pt min.). @ -None done U/S interpreted by me (1pt. min.). @ -Ultrasound shows early gestational sac What testing was considered but not performed or refused? (CT, X-rays, U/S, labs)? Why? @ -None What meds were considered but not given or refused? Why? @ -None Did you discuss the management of the patient with other professionals (professionals i.e. JOSE CARLOS Parr, REINFORCING [employer] AND REBAR WORKERS, lab, RT, psych nurse, social work instructor, boat loader helper, teacher, ship's officer, manager of case)? Give summary @ -No Was smoking cessation discussed for >3mins.? @ -No Was critical care preformed (if so, how long)? @ -No Were there social determinants of health that impacted care today? How? (Homelessness, low income, unemployed, alcoholism, drug addiction, transportation, low edu. Level, literacy, decrease access to med. care, halfway, rehab)? @ -No Was there de-escalation of care discussed even if they declined (Discuss DNR or withdrawal of care, Hospice)? DNR status @ -No What co-morbidities impacted this encounter? (DM, HTN, Smoking, COPD, CAD, Cancer, CVA, ARF, Chemo, Hep., AIDS, mental health diagnosis, sleep apnea, morbid obesity)? @ -None Was patient admitted / discharged? Hospital course, mention meds given and route, prescriptions, significant lab abnormalities, going to OR and other pertinent info. @ -Discharge patient started have positive urine hCG surrounding shows possible early gestational sac. Patient will follow with CONTRACTING ANALYST return parameters were discussed patient has no comp acute fractures. Patient does not have any severe tenderness or localized pain concerning for ectopic she will have recheck in 48 hours. Undiagnosed new problem with uncertain prognosis? @ -No Drug Therapy requiring intensive monitoring for toxicity (Heparin, Nitro, Insulin, Cardizem)? @ -No Were any procedures done? @ -No Diagnosis/symptom? @ -, abdominal pain Acute, or Chronic, or Acute on Chronic? @ -Acute Uncomplicated (without systemic symptoms) or Complicated (systemic symptoms)? @ -Uncomplicated Side effects of treatment? @ -No Exacerbation, Progression, or Severe Exacerbation? @ -No Poses a threat to life or bodily function? How? (Chest pain, [place], [place], pneumonia, PE, COPD, DKA, ARF, appy, cholecystitis, CVA, Diverticulitis, Homicidal, Suicidal, threat to staff... and all critical care pts) @ -No - Lab Data Result diagrams: 03/08/23 10:47 03/08/23 10:47 Lab Results 03/08/23 03/08/23 03/08/23 Range/Units 10:47 10:47 10:47 WBC 6.1 (3.8-10.6) k/uL RBC 4.42 (3.80-5.40) m/uL Hgb 13.0 (11.4-16.0) gm/dL Hct 38.7 (34.0-46.0) % MCV 87.5 (80.0-100.0) fL MCH 29.3 (25.0-35.0) pg MCHC 33.5 (31.0-37.0) g/dL RDW 12.8 (11.5-15.5) % Plt Count 285 (150-450) k/uL MPV 7.3 Sodium (137-145) mmol/L Potassium (3.5-5.1) mmol/L Chloride (98-107) mmol/L Carbon Dioxide (22-30) mmol/L Anion Gap mmol/L BUN (7-17) mg/dL Creatinine (0.52-1.04) mg/dL Est GFR (CKD-EPI)AfAm (>60 ml/min/1.73 sqM) Est GFR (CKD-EPI)NonAf (>60 ml/min/1.73 sqM) Glucose (74-99) mg/dL Calcium (8.4-10.2) mg/dL Total Bilirubin (0.2-1.3) mg/dL AST (14-36) U/L ALT (4-34) U/L Alkaline Phosphatase (38-126) U/L Total Protein (6.3-8.2) g/dL Albumin (3.5-5.0) g/dL Amylase (30-110) U/L Lipase (23-300) U/L HCG, Quant mIU/mL Urine Color Yellow Urine Appearance Clear (Clear) Urine pH 7.0 (5.0-8.0) Ur Specific [place] 1.014 (1.001-1.035) Urine Protein Negative (Negative) Urine Glucose (UA) Negative (Negative) Urine Ketones Negative (Negative) Urine Blood Negative (Negative) Urine Nitrite Negative (Negative) Urine Bilirubin Negative (Negative) Urine Urobilinogen <2.0 (<2.0) mg/dL Ur Leukocyte Esterase Negative (Negative) Urine HCG, Qual Detected (Not Detectd) 03/08/23 03/08/23 Range/Units 10:47 13:35 WBC (3.8-10.6) k/uL RBC (3.80-5.40) m/uL Hgb (11.4-16.0) gm/dL Hct (34.0-46.0) % MCV (80.0-100.0) fL MCH (25.0-35.0) pg MCHC (31.0-37.0) g/dL RDW (11.5-15.5) % Plt Count (150-450) k/uL MPV Sodium 137 (137-145) mmol/L Potassium 4.0 (3.5-5.1) mmol/L Chloride 104 (98-107) mmol/L Carbon Dioxide 24 (22-30) mmol/L Anion Gap 9 mmol/L BUN 8 (7-17) mg/dL Creatinine 0.64 (0.52-1.04) mg/dL Est GFR (CKD-EPI)AfAm >90 (>60 ml/min/1.73 sqM) Est GFR (CKD-EPI)NonAf >90 (>60 ml/min/1.73 sqM) Glucose 108 H (74-99) mg/dL Calcium 9.4 (8.4-10.2) mg/dL Total Bilirubin 0.8 (0.2-1.3) mg/dL AST 23 (14-36) U/L ALT 22 (4-34) U/L Alkaline Phosphatase 53 (38-126) U/L Total Protein 7.2 (6.3-8.2) g/dL Albumin 4.3 (3.5-5.0) g/dL Amylase 42 (30-110) U/L Lipase 59 (23-300) U/L HCG, Quant 44763.7 mIU/mL Urine Color Urine Appearance (Clear) Urine pH (5.0-8.0) Ur Specific [place] (1.001-1.035) Urine Protein (Negative) Urine Glucose (UA) (Negative) Urine Ketones (Negative) Urine Blood (Negative) Urine Nitrite (Negative) Urine Bilirubin (Negative) Urine Urobilinogen (<2.0) mg/dL Ur Leukocyte Esterase (Negative) Urine HCG, Qual (Not Detectd) Disposition Clinical Impression: Disposition: HOME SELF-CARE Condition: Stable Instructions (If sedation given, give patient instructions): (ED) Additional Instructions: Please return to the Emergency Department if symptoms worsen or any other concerns. Is patient prescribed a controlled substance at d/c from ED?: No Referrals: None,Stated [Primary Care Provider] - 1-2 days Time of Disposition: 14:34
[2023-03-08 10:57] LABS: HCT 38.7 % (34.0-46.0); MCH 29.3 pg (25.0-35.0); MCHC 33.5 g/dL (31.0-37.0); MCV 87.5 fL (80.0-100.0); Mean Platelet Volume 7.3; Platelet Count 285 k/uL (150-450); RBC 4.42 m/uL (3.80-5.40); RDW 12.8 % (11.5-15.5); WBC 6.1 k/uL (3.8-10.6)
[2023-03-08 10:59] LABS: Appearance,Urine Clear (Clear); Bilirubin,Urine Negative (Negative); Blood,Urine Negative (Negative); Color,Urine Yellow; Glucose,Urine (UA) Negative (Negative); Ketones,Urine Negative (Negative); Leukocyte Esterase,Urine Negative (Negative); Nitrite,Urine Negative (Negative); Protein,Urine Negative (Negative); Specific Gravity,Urine 1.014 (1.001-1.035); Urobilinogen,Urine <2.0 mg/dL (<2.0)
[2023-03-08 11:10] LABS: ALT 22 U/L (4-34); AST 23 U/L (14-36); African American GFR (CKD) >90 (>60 ml/min/1.73 sqM); Albumin 4.3 g/dL (3.5-5.0); Alkaline Phosphatase 53 U/L (38-126); Amylase 42 U/L (30-110); Anion Gap 9 mmol/L; Blood Urea Nitrogen 8 mg/dL (7-17); Calcium 9.4 mg/dL (8.4-10.2); Carbon Dioxide 24 mmol/L (22-30); Chloride 104 mmol/L (98-107); Glucose 108 mg/dL (74-99); Lipase 59 U/L (23-300); Non-African American GFR(CKD) >90 (>60 ml/min/1.73 sqM); Sodium 137 mmol/L (137-145); Total Bilirubin 0.8 mg/dL (0.2-1.3); Total Protein 7.2 g/dL (6.3-8.2)
--- NOTE | 2023-03-08 14:37 | US ---
EXAMINATION TYPE: Transabdominal DATE OF EXAM: 03/08/2023 11:48 AM COMPARISON: NONE CLINICAL INDICATION: Female, 27 years old with history of pain; Unknown LMP. Patient states seen maribeth nt line in test. EXAM PERFORMED: Transvaginal (TV) and Transabdominal (TA) EXAM MEASUREMENTS: GESTATIONAL AGE / DATING Physician Established: Not yet established Dates by LMP: LMP unknown Dates by First Scan: No previous this is first scan Dates by Current Scan for: ( 5 weeks/1 days) EDC: 11/07/2023 MATERNAL ANATOMY Uterus: 11.1 x 7.2 x 5.1 cm Right Ovary: 4.0 x 3.0 x 2.9 cm Left Ovary: 3.0 x 1.9 x 1.3 cm Post CDS / Adnexa: free fluid adjacent to right ovary and in left adnexa Presence of free fluid: no Presence of corpus luteal cyst: right = 2.4 x 2.5 x 2.2 cm Presence of subchorionic bleed: no GESTATION / SURVEY CRL: Not visualized MSD: 1.1 cm (5 weeks/1 days) Yolk Sac (normal less than 6mm): not visualized IUP: Gestational sac only visualized within endometrium Date of LMP: Unknown, Beta HcG (if available): Not available at this time Gestational sac identified within the endometrium without visualization of a yolk sac or pole. IMPRESSION: Small anechoic intrauterine cystic structure without evidence for yolk sac or pole at this time . This could represent an early gestational sac however ectopic and abnormal intrauterine p regnancy cannot be ruled out based on this exam alone. Follow-up with pelvic ultrasound in 7-10 days and serial beta-hCG studies are recommended to en sure further development of the fetus.
[2023-03-08 15:02] VITALS: BP 113/77; PULSE 64; RESP 17; TEMP 97.9
== END 2023-03-08 15:01 | disposition home or self-care (01) ==
LOC: EC 10:19
DX: O26.891 Other specified pregnancy related conditions, first trimester (principal); R10.9 Unspecified abdominal pain; O99.341 Other mental disorders complicating pregnancy, first trimester; F41.9 Anxiety disorder, unspecified; F32.A Depression, unspecified; O99.331 Smoking (tobacco) complicating pregnancy, first trimester; F17.290 Nicotine dependence, other tobacco product, uncomplicated; Z3A.01 Less than 8 weeks gestation of pregnancy
CPT/HCPCS: 36415; 76801; 76817; 80053; 81003; 81025; 82150; 83690; 84702; 85027; 99284

== ENCOUNTER 2023-04-07 09:32 | Emergency (ER) | payer OTHER ==
[2023-04-07 09:47] VITALS: RESP 18; TEMP 98.1
[2023-04-07 10:24] LABS: Bacteria,Urine Rare /hpf; RBC,Urine 56 /hpf (0-5); Squamous Epithelial Cell,Urine 23 /hpf (0-4); WBC,Urine 21 /hpf (0-5)
[2023-04-07 10:25] LABS: Appearance,Urine Cloudy (Clear); Bilirubin,Urine Negative (Negative); Blood,Urine Negative (Negative); Color,Urine Yellow; Glucose,Urine (UA) Negative (Negative); Ketones,Urine Negative (Negative); Protein,Urine 1+ (Negative); Specific Gravity,Urine >1.030 (1.001-1.035)
[2023-04-07 10:26] LABS: Leukocyte Esterase,Urine Moderate (Negative); Nitrite,Urine Negative (Negative)
--- NOTE | 2023-04-07 10:31 | ED ---
Female Urogenital HPI - General Chief complaint: Vaginal Bleeding Stated complaint: 10 wks , spotting Time Seen by Provider: 04/07/23 09:49 Source: patient, RN notes reviewed Mode of arrival: ambulatory Limitations: no limitations - History of Present Illness Initial comments: 27-year-old female presents emergency Department with chief complaint of vaginal bleeding and . Patient states she is almost 7 weeks states she is waiting to hear back from her SENIOR REACTOR OPERATOR. Patient states that she has no abdominal pain she noticed some brownish discharged in which she followed up with. Clinic a few days ago had normal ultrasound. Patient states that it turned in to light pink bleeding. She has a positive blood type. Patient denies any other associated symptoms. - Related Data Previous Rx's Medication Instructions Recorded Cephalexin [Keflex] 500 mg PO Q6H #28 cap 08/29/20 Fluticasone Nasal [place] [Flonase 1 spray EA NOSTRIL DAILY #1 bottle 12/20/20 Nasal [place]] Cephalexin [Keflex] 500 mg PO Q8HR #21 cap 04/07/23 Allergies Allergy/AdvReac Type Severity Reaction Status Date / Time No Known Allergies Allergy Verified 04/07/23 09:44 Review of Systems ROS Statement: Those systems with pertinent positive or pertinent negative responses have been documented in the HPI. ROS Other: All systems not noted in ROS Statement are negative. Past Medical History Past Medical History: Seizure Disorder Additional Past Medical History / Comment(s): back pain History of Any Multi-Drug Resistant Organisms: None Reported Past Surgical History: Section Past Anesthesia/Blood Transfusion Reactions: No Reported Reaction Past Psychological History: Anxiety, Depression Smoking Status: Vaper Past Alcohol Use History: None Reported Past Drug Use History: None Reported General Exam Limitations: no limitations General appearance: alert, in no apparent distress Head exam: Present: atraumatic, normocephalic, normal inspection Respiratory exam: Present: normal lung sounds bilaterally. Absent: respiratory distress, wheezes, rales, rhonchi, stridor Cardiovascular Exam: Present: regular rate, normal rhythm, normal heart sounds. Absent: systolic murmur, diastolic murmur, rubs, gallop, clicks GI/Abdominal exam: Present: soft, normal bowel sounds. Absent: distended, tenderness, guarding, rebound, rigid Back exam: Absent: CVA tenderness (R), CVA tenderness (L) Course Vital Signs 04/07/23 09:44 Temperature 98.1 F Pulse Rate 79 Respiratory 18 Rate Blood Pressure 120/79 O2 Sat by Pulse 96 Oximetry Medical Decision Making - Medical Decision Making Was pt. sent in by a medical professional or institution (JOSE CARLOS Parr, [facility], urgent care, hospital, or custodial...) When possible be specific @ -No Did you speak to anyone other than the patient for history (EMS, parent, family, police, friend...)? What history was obtained from this source @ -No Did you review nursing and triage notes (agree or disagree)? Why? @ -I reviewed and agree with nursing and triage notes Were old charts reviewed (outside hosp., previous admission, EMS record, old EKG, old radiological studies, urgent care reports/EKG's, custodial records)? Report findings @ -Reviewed prior laboratory studies including blood type Differential Diagnosis (chest pain, altered mental status, abdominal pain women, abdominal pain men, vaginal bleeding, weakness, fever, dyspnea, syncope, headache, dizziness, GI bleed, back pain, seizure, CVA, palpatations, mental health, musculoskeletal)? @ -Miscarriage, threatened miscarriage, UTI EKG interpreted by me (3pts min.). @ -None X-rays interpreted by me (1pt min.). @ -None done CT interpreted by me (1pt min.). @ -None done U/S interpreted by me (1pt. min.). @ -SHOWS VIABLE SINGLE IUP 10 WEEKS AND 4 DAYS HEART RATE 165 eating FRACTURES What testing was considered but not performed or refused? (CT, X-rays, U/S, labs)? Why? @ -None What meds were considered but not given or refused? Why? @ -None Did you discuss the management of the patient with other professionals (cuong sheets i.e. JOSE CARLOS Parr, [facility], lab, RT, psych nurse, social sciences research scientist, business and marketing teacher, teacher, traffic division commanding officer, community case manager)? Give summary @ -No Was smoking cessation discussed for >3mins.? @ -No Was critical care preformed (if so, how long)? @ -No Were there social determinants of health that impacted care today? How? (Homelessness, low income, unemployed, alcoholism, drug addiction, transportation, low edu. Level, literacy, decrease access to med. care, longterm, rehab)? @ -No Was there de-escalation of care discussed even if they declined (Discuss DNR or withdrawal of care, Hospice)? DNR status @ -No What co-morbidities impacted this encounter? (DM, HTN, Smoking, COPD, CAD, Cancer, CVA, ARF, Chemo, Hep., AIDS, mental health diagnosis, sleep apnea, morbid obesity)? @ -None Was patient admitted / discharged? Hospital course, mention meds given and route, prescriptions, significant lab abnormalities, going to OR and other pertinent info. @ -Discharge patient has evidence UTI patient started on oral antibiotics patient increase fluid intake patient follow-up with SENIOR REACTOR OPERATOR return parameters were discussed. course Undiagnosed new problem with uncertain prognosis? @ -No Drug Therapy requiring intensive monitoring for toxicity (Heparin, Nitro, Insulin, Cardizem)? @ -No Were any procedures done? @ -No Diagnosis/symptom? @ -UTI in Acute, or Chronic, or Acute on Chronic? @ -Acute Uncomplicated (without systemic symptoms) or Complicated (systemic symptoms)? @ -Uncomplicated Side effects of treatment? @ -No Exacerbation, Progression, or Severe Exacerbation? @ -No Poses a threat to life or bodily function? How? (Chest pain, [place], [place], pneumonia, PE, COPD, DKA, ARF, appy, cholecystitis, CVA, Diverticulitis, Homicidal, Suicidal, threat to staff... and all critical care pts) @ -No - Lab Data Lab Results 04/07/23 Range/Units 10:08 Urine Color Yellow Urine Appearance Cloudy H (Clear) Urine pH 6.0 (5.0-8.0) Ur Specific [place] >1.030 (1.001-1.035) Urine Protein 1+ (Negative) Urine Glucose (UA) Negative (Negative) Urine Ketones Negative (Negative) Urine Blood Negative (Negative) Urine Nitrite Negative (Negative) Urine Bilirubin Negative (Negative) Urine Urobilinogen 2.0 (<2.0) mg/dL Ur Leukocyte Esterase Moderate (Negative) Urine RBC 56 H (0-5) /hpf Urine WBC 21 H (0-5) /hpf Ur Squamous Epith Cells 23 H (0-4) /hpf Urine Bacteria Rare H (None) /hpf Disposition Clinical Impression: UTI in Disposition: HOME SELF-CARE Condition: Stable Instructions (If sedation given, give patient instructions): Urinary Tract Infe ction in (ED) Additional Instructions: Please return to the Emergency Department if symptoms worsen or any other concerns. Prescriptions: Cephalexin [Keflex] 500 mg PO Q8HR #21 cap Is patient prescribed a controlled substance at d/c from ED?: No Referrals: None,Stated [Primary Care Provider] - 1-2 days Time of Disposition: 10:59
--- NOTE | 2023-04-07 10:43 | US ---
EXAMINATION TYPE: Ultrasound OB <14 weeks fetus DATE OF EXAM: 04/07/2023 10:32 AM COMPARISON: US DATED 03/08/2023 CLINICAL INDICATION: Female, 27 years old with history of bleeding; EXAM PERFORMED: Transabdominal (TA) EXAM MEASUREMENTS: GESTATIONAL AGE / DATING Physician Established: Not yet established Dates by LMP: LMP unknown Dates by First Scan: UNABLE TO DATE BY FIRST SCAN Dates by Current Scan for: (10 weeks/4 days) EDC: 10/30/2023 MATERNAL ANATOMY Uterus: 10.8 X 8.7 X 9.5 cm Right Ovary: 3.6 x 1.9 x 2.8 cm Left Ovary: not visualized Post CDS / Adnexa: wnl Presence of free fluid: none Presence of corpus luteal cyst: cyst right ovary measures 2.2 x 1.3 x 1.2 cm. GESTATION / SURVEY CRL: 3.6 cm (10 weeks/4 days) Yolk Sac (normal less than 6mm): not seen Heart Rate: 165 bpm Rhythm: Normal IUP: Viable IUP Date of LMP: unknown Ceramics Machine Operator notes: Single viable IUP at 10 weeks 4 days, heartrate 165 bpm. IMPRESSION: 1. Single live intrauterine with gestational age of 10 weeks 4 days by CRL. 2. Complete survey recommended at 18-20 weeks.
[2023-04-07 11:19] VITALS: BP 127/71; PULSE 81
== END 2023-04-07 11:31 | disposition home or self-care (01) ==
LOC: EC 09:32
DX: O23.41 Unspecified infection of urinary tract in pregnancy, first trimester (principal); N39.0 Urinary tract infection, site not specified; O99.331 Smoking (tobacco) complicating pregnancy, first trimester; F17.290 Nicotine dependence, other tobacco product, uncomplicated; Z3A.10 10 weeks gestation of pregnancy
CPT/HCPCS: 76801; 81001; 87086; 99284

== ENCOUNTER 2023-04-12 16:55 | Emergency (ER) | payer OTHER ==
[2023-04-12 17:39] VITALS: BP 128/84; PULSE 70; RESP 16; TEMP 98
--- NOTE | 2023-04-12 18:38 | US ---
EXAMINATION TYPE: Transabdominal DATE OF EXAM: 04/12/2023 6:14 PM COMPARISON: 04/07/23 CLINICAL INDICATION: Female, 27 years old with history of 11 wks , vag bleeding; bleeding x 1 week EXAM PERFORMED: Transabdominal (TA) EXAM MEASUREMENTS: GESTATIONAL AGE / DATING Physician Established: Pt does not have an OB Dates by LMP: LMP unknown Dates by First Scan: 04/07/23 (11 weeks/2 days) EDC: 10/30/23 Dates by Current Scan for: (11 weeks/2 days) EDC: 10/30/23 MATERNAL ANATOMY Uterus: 11.7 x 8.7 x 7.0cm Right Ovary: 3.7 x 2.2 x 2.7cm Left Ovary: Not seen Post CDS / Adnexa: wnl Presence of free fluid: No Presence of corpus luteal cyst: No Presence of subchorionic bleed: Hypoechoic area adjacent to gest sac seen measuring 4.8 x 4.7 x 3.0cm . Possible bleed? GESTATION / SURVEY CRL: 4.42cm (11 weeks/2 days) MSD: Not measured, appears wnl Yolk Sac (normal less than 6mm): 4.0mm. Placenta starting to form Heart Rate: 155 bpm Rhythm: Normal IUP: Viable IUP Age Appropriate Anatomy Cord Insertion: Visualized Limbs: Visualized Calvarium: Visualized Beta HcG (if available): Not available at this time IMPRESSION: Single live IUP seen measuring 11 weeks 2 days. Hypoechoic area seen adjacent to gestational sac, pos sible subchorionic hemorrhage.
== END 2023-04-12 18:20 | disposition left against medical advice (07) ==
LOC: EC 16:55
DX: Z53.21 Procedure and treatment not carried out due to patient leaving prior to being seen by health care provider (principal)
CPT/HCPCS: 76801; 99499

== ENCOUNTER 2023-08-30 15:20 | Outpatient (CLI) | payer OTHER ==
[2023-08-30 17:19] VITALS: BP 135/73; PULSE 73; RESP 16; TEMP 97.8
--- NOTE | 2023-09-01 11:13 | P.MSEPDOC ---
Presenting Problems - Arrival Data Date of Arrival on Unit: 08/30/23 Time of Arrival on Unit: 15:21 Mode of Transport: Ambulatory - Complaint OB-Reason for Admission/Chief Complaint: Decreased Movement Medical History - Information : 7 Para: 3 Term: 3 : 0 Abortions: Spontaneous or Elective: 3 Number of Living Children: 3 - Gestational Age Gestational Age by DEDE (wks/days): 31 Weeks and 0 Days - History Complications: Smoker Review of Systems - Review of Systems Constitutional: No problems Breast: No problems ENT: No problems Cardiovascular: No problems Respiratory: No problems Gastrointestinal: No problems Genitourinary: No problems Musculoskeletal: No problems Neurological: No problems Skin: No problems Vital Signs - Temperature Temperature: 97.8 F Temperature Source: Temporal Artery Scan - Pulse Right Sitting Pulse Rate: 73 Pulse Assessment Method: Automatic Cuff - Respirations Respiratory Rate: 16 Oxygen Delivery Method: Room Air - Blood Pressure Right Arm Blood Pressure: 135/73 Blood Pressure Mean: 93 Blood Pressure Source: Automatic Cuff Medical Screen Scoring - Assessment - Baby A Baseline FHR: 130 Heart Rate - NICHD Category: Category I (Normal) NST: Reactive Physician Notification - Physician Notified Physician Notified Date: 08/30/23 Physician Notified Time: 16:45 Physician: Mehran Tyler New Order Received: Yes (D/C HOME) Maternal Triage Index - Urgent/Priority 2 Urgent Priority 2: Yes Provider Notified: Mehran Tyler Provider Notified Time: 16:45 Criteria Met for Priority 2: reactive nst Disposition - Disposition OB Disposition: Discharge to home, Written follow up instructions reviewed Discharge Date: 08/30/23 Discharge Time: 16:45 I agree with the RN Medical Screening Exam: Yes Physician's MSE Comment: I have neither seen nor examined the patient. Case reviewed; plan agreed upon as documented in EMR&OBIX.: Yes Diagnosis: RELATED CONDITIONS, UNSPECIFIED, THIRD TRIMESTER
== END 2023-08-30 16:38 | disposition home or self-care (01) ==
LOC: FBPOP 15:20
PROVIDERS: ATTEND Obstetrics & Gynecology
DX: O26.93 Pregnancy related conditions, unspecified, third trimester (principal); O99.333 Smoking (tobacco) complicating pregnancy, third trimester; F17.200 Nicotine dependence, unspecified, uncomplicated; Z3A.31 31 weeks gestation of pregnancy
CPT/HCPCS: 59025; G0463; 99213

== ENCOUNTER 2023-10-24 10:07 | Inpatient (IN) | payer OTHER ==
[2023-10-24] MEDS ORDERED: miSOPROStoL 200 MCG TAB PO PRN (10:20)
[2023-10-24] MEDS ORDERED: OXYTOCIN 10 UNIT/ML 1 ML VIAL IM PRN (10:20)
[2023-10-24] MEDS ORDERED: METHYLERGONOVINE 0.2 MG/ML 1 ML AMP IM PRN (10:20)
[2023-10-24] MEDS ORDERED: TRANEXAMIC 1,000 MG/100ML-NACL 1,000 MG in EMPTY BAG 1 BAG IV PRN (10:20)
[2023-10-24] MEDS ORDERED: CARBOPROST TROMETHAMINE 250 MCG/ML 1 ML AMP IM PRN (10:20)
[2023-10-24 10:36] LABS: Basophils % (A) 0 %; Eosinophils # (A) 0.1 k/uL (0-0.7); Eosinophils % (A) 1 %; HCT 34.6 % (34.0-46.0); HGB 11.9 gm/dL (11.4-16.0); Lymphocytes # (A) 1.4 k/uL (1.0-4.8); Lymphocytes % (A) 16 %; MCH 29.7 pg (25.0-35.0); MCHC 34.2 g/dL (31.0-37.0); MCV 86.6 fL (80.0-100.0); Mean Platelet Volume 7.8; Monocytes # (A) 0.3 k/uL (0-1.0); Monocytes % (A) 4 %; Neutrophils # (A) 6.8 k/uL (1.3-7.7); Neutrophils % (A) 78 %; Platelet Count 264 k/uL (150-450); RDW 13.5 % (11.5-15.5); WBC 8.7 k/uL (3.8-10.6)
[2023-10-24] MEDS: CITRIC ACID-SODIUM CITRATE 15 ML CUP PO ONE (10:56)
[2023-10-24] MEDS: LACTATED RINGERS 1,000 ML IV SCH ×2 (10:57→20:25)
[2023-10-24] MEDS ORDERED: PHENYLEPHRINE 10 MG/ML VIAL ONE (12:08)
[2023-10-24] MEDS ORDERED: MORPHINE SULFATE (PF) 0.3 MG/0.3 ML SYR ONE (12:08)
[2023-10-24] MEDS ORDERED: ONDANSETRON 4 MG/2 ML VIAL ONE (12:08)
[2023-10-24] MEDS ORDERED: OXYTOCIN 30 UNITS/500 ML NS BAG IV ONE (12:08)
[2023-10-24] MEDS ORDERED: KETOROLAC 30 MG/ML 1 ML VIAL ONE (12:08)
--- NOTE | 2023-10-24 12:13 | P.HPOB ---
History of Present Illness H&P Date: 10/24/23 Chief Complaint: 39 and one sevenths weeks, previous section x3, un desired fertilit The patient is a 28-year-old 7 para 3033 admitted at 39 and one sevenths weeks as established by 10 week ultrasound. She carries a history of 3 previous sections and has requested a repeat section with intraoperative bilateral tubal occlusion using Filshie clips. Her was otherwise essentially uncomplicated though she has a history of drug abuse in the past but has been clean for some time. Group B strep status is negative. On labor and delivery, all signs reassuring with a category 1 heart rate tracing. Obstetrical history: 7 para 3033 with 3 term sections and 3 early losses. Current statistics are listed in history present illness. EDC of 10/30/2023 was established by a 10 week ultrasound. Laboratory workup demonstrates a blood type of A+ with a negative antibody screen. Rubella status is immune. Remainder of the laboratory workup was within normal limits. Early Glucola was normal while second trimester Glucola was elevated but followed by a normal three-hour glucose tolerance test. Group B strep status is negative. Gynecologic history: Unremarkable with no history of any infections to include STDs. Partner does have a history of hepatitis C and she has tested negative on 2 separate occasions this . Review of Systems Review of systems is confined to history of present illness. Past Medical History Past Medical History: Seizure Disorder Additional Past Medical History / Comment(s): back pain, no seizure in more than 5 yrs, History of Any Multi-Drug Resistant Organisms: None Reported Past Surgical History: Section Past Anesthesia/Blood Transfusion Reactions: No Reported Reaction Past Psychological History: Anxiety, Depression Additional Psychological History / Comment(s): overdose states unintentional admited to xanax and flexeril when questioned further states took adderal two days agostates she does get post depression Smoking Status: Former smoker Past Alcohol Use History: None Reported Past Drug Use History: None Reported Additional Drug Use History / Comment(s): states took some abilify of moms and adderol denies street or recreational drug usage - Past Family History Father Family Medical History: No Reported History Medications and Allergies Home Medications Medication Instructions Recorded Confirmed Type No Known Home Medications 08/30/23 10/17/23 History Allergies Allergy/AdvReac Type Severity Reaction Status Date / Time No Known Allergies Allergy Verified 10/17/23 14:14 Exam Vital Signs Temp Pulse Resp BP 10/24/23 10:20 98.0 F 75 16 123/83 Intake and Output 10/23/23 10/24/23 10/24/23 22:59 06:59 14:59 Other: Weight 102.965 kg In general, this is a well-developed, well-nourished white female in no acute distress. Her heart has a regular rhythm and rate without murmur. Her lungs clear to auscultation bilaterally in all summers. Her abdomen is gravid, nondistended, has normal active bowel sounds, soft, nontender, and without any palpable masses aside from uterine fundus. Her extremities are without any cyanosis, clubbing, or significant edema and are nontender to palpation bilaterally. Digital cervical examination is deferred. Results Result Diagrams: 10/24/23 10:20 Assessment and Plan (1) Family planning Current Visit: Yes Status: Acute Code(s): Z30.09 - ENCOUNTER FOR OTH GENERAL CNSL AND ADVICE ON CONTRACEPTION SNOMED Code(s): 037989112 (2) Previous section Current Visit: Yes Status: Acute Code(s): Z98.891 - HISTORY OF UTERINE SCAR FROM PREVIOUS SURGERY SNOMED Code(s): 315716025 (3) Term Current Visit: Yes Status: Acute Code(s): Z34.90 - ENCNTR FOR SUPRVSN OF NORMAL , UNSP, UNSP TRIMESTER SNOMED Code(s): 40908247 Plan: The patient is admitted for repeat low transverse section with bilateral intraoperative tubal occlusion with Filshie clips. The risks and complications of the procedure been thoroughly discussed and she has understood and agreed to proceed. She has reaffirmed her desire for permanent sterilization.
[2023-10-24] MEDS ORDERED: ONDANSETRON 4 MG/2 ML VIAL IVP PRN (12:39)
[2023-10-24] MEDS ORDERED: NALBUPHINE 10 MG/ML (10 ML MDV) IV PRN (12:39)
[2023-10-24] MEDS ORDERED: NALOXONE 0.4 MG/ML 1 ML VIAL IV PRN (12:39)
[2023-10-24] MEDS ORDERED: KETOROLAC 15 MG/ML 1 ML VIAL IVP PRN (12:39)
[2023-10-24] MEDS ORDERED: MORPHINE SULFATE 2 MG/ML SYRINGE IVP PRN (12:39)
[2023-10-24] MEDS ORDERED: diphenhydrAMINE 50 MG/ML 1 ML VIAL IVP PRN ×2 (12:39→13:00)
[2023-10-24] MEDS ORDERED: diphenhydrAMINE 25 MG CAP PO PRN (13:00)
[2023-10-24] MEDS ORDERED: diphenhydrAMINE 50 MG CAP PO PRN (13:00)
[2023-10-24] MEDS ORDERED: OXYTOCIN 30 UNITS/500 ML NS 30 UNIT in SALINE 1 500ML.BAG IV SCH (13:00)
[2023-10-24] MEDS ORDERED: LANOLIN CREAM 5 GM TUBE TOPICAL PRN (13:00)
[2023-10-24] MEDS ORDERED: ZOLPIDEM 5 MG TAB PO PRN (13:00)
[2023-10-24] MEDS ORDERED: METOCLOPRAMIDE 5 MG/ML 2 ML VIAL IVP PRN (13:00)
--- NOTE | 2023-10-24 13:09 | P.OP ---
Date of Procedure: 10/24/23 Preoperative Diagnosis: #1. 39 and one sevenths weeks, previous section x3 #2. Undesired fertility Postoperative Diagnosis: Same Procedure(s) Performed: #1. Primary low-transverse section #2. Intraoperative bilateral tubal occlusion with Filshie clips Anesthesia: spinal Surgeon: Mehran Tyler Workgroup Leader #1: Jessica Ortiz Estimated Blood Loss (ml): 400 IV fluids (ml): 800 Urine output (ml): 100 Pathology: none sent Condition: stable Disposition: floor Operative Findings: Preoperatively the patient had reaffirmed her consent for intraoperative bilateral tubal occlusion, permanent sterilization, using Filshie clips. She was taken the operating room where she underwent repeat low transverse section and uncomplicated fashion was delivered of a viable 7 lbs. 1 oz. baby girl with Apgars of 9 at 1 minute and 9 at 5 minutes in the occiput anterior position. The placenta was delivered manually, intact, and grossly normal with a grossly normal three-vessel cord. The uterus, tubes, and ovaries were entirely normal to inspection. The lower uterine segment was significantly thin prior to opening the hysterotomy to deliver the . The urine remained clear throughout the entire case. There was a moderate amount of scarring noted at the level of the fascia and rectus muscles. A Filshie clip was placed firmly across the isthmic portion of each fallopian tube approximately 2-3 cm from the cornu. Description of Procedure: The patient was prepped and draped in usual fashion after spinal anesthesia was administered by the anesthesiologist. A Pfannenstiel incision was made through pre-existing scar and extended into the abdominal cavity with minimal difficulty encountered only at the level of the rectus muscles and fascia from previous surgeries. The bladder peritoneum was noted to be scarred fairly high on the lower uterine segment which was also noted to be extraordinarily thin. The bladder peritoneum was elevated, incised, and reflected distally. A 2 cm incision was made above the thin portion of the lower segment to enter the uterus at which time clear fluid was noted. The incision was extended in both directions using the bandage scissors. The head was delivered up and through the incision where the nose and mouth were thoroughly suctioned. The remainder of the was delivered onto the field where the cord was doubly clamped, cut, and the infant passed resuscitative measures with weight and Apgars as noted above. A segment of cord was doubly clamped, cut, and set aside should cord gases become necessary. The placenta was delivered manually, intact, and grossly normal as noted above. The uterus was exteriorized and the interior cavity of the uterus swept of any remaining placental or membranous fragments. The margins of the uterine incision were grasped with Summers clamps and the incision closed in a single running locking stitch of 0 chromic catgut from margin to margin. Hemostasis appeared to be excellent. After reaffirming the patient's desire for bilateral tubal occlusion, a Filshie clip was placed firmly across the isthmic portion of each fallopian tube approxima tely 2-3 cm from the cornea. The posterior cul-de-sac was suctioned with a guard and the uterus was replaced within the abdominal cavity. The gutters were swept of any remaining blood, fluid, or clot. The incision was reexamined and found to be hemostatic. The parietal peritoneum was loosely reapproximated and layer of muscles was examined and found to be hemostatic. The fascia was closed with 2 running stitches of 0 Vicryl proceeding from the lateral margins to the midpoint. The subcutaneous tissues were irrigated, made hemostatic with the Bovie, and reapproximated with running stitch of 30 plain catgut. The skin was reapproximated with a running subcuticular stitch of 4-0 Vicryl followed by half-inch Steri-Strips placed with Mastisol. Estimated blood loss for the case is approximately 400 mL. There were no complications. All sponge, instrument, and needle counts were correct. The patient tolerated the procedure well and proceeded to the recovery room in stable condition. Both mother and infant are resting comfortably in recovery.
[2023-10-24] MEDS: OXYTOCIN 30 UNITS/500 ML NS 30 UNIT in SALINE 1 500ML.BAG IV SCH (15:00)
[2023-10-24] MEDS: IBUPROFEN 600 MG TAB PO SCH (20:13)
[2023-10-24] MEDS: SENNOSIDES-DOCUSATE SODIUM 1 EACH TAB PO SCH (20:13)
[2023-10-24] MEDS: ACETAMINOPHEN TAB 500 MG TAB PO SCH (20:25)
[2023-10-25 06:30] LABS: Basophils % (A) 0 %; Eosinophils # (A) 0.1 k/uL (0-0.7); Eosinophils % (A) 1 %; HCT 31.4 % (34.0-46.0); HGB 10.4 gm/dL (11.4-16.0); Lymphocytes # (A) 1.7 k/uL (1.0-4.8); Lymphocytes % (A) 21 %; MCH 28.8 pg (25.0-35.0); MCHC 33.1 g/dL (31.0-37.0); Monocytes # (A) 0.4 k/uL (0-1.0); Monocytes % (A) 5 %; Neutrophils # (A) 5.8 k/uL (1.3-7.7); Neutrophils % (A) 72 %; Platelet Count 207 k/uL (150-450); RBC 3.61 m/uL (3.80-5.40); RDW 13.6 % (11.5-15.5)
--- NOTE | 2023-10-25 08:43 | P.PNOBGPC ---
Subjective - Subjective Patient reports: Reports appetite normal, Reports voiding normally, Reports pain well controlled, Reports ambulating normally : doing well, nursing well Objective - Vital Signs Latest vital signs: Vital Signs Temp Pulse Resp BP Pulse Ox 10/25/23 07:25 97.4 F L 71 16 102/53 100 10/25/23 05:16 98.0 F 60 16 107/84 10/25/23 01:08 98.0 F 78 16 110/75 10/24/23 19:00 97.5 F L 76 16 134/83 10/24/23 16:37 100 10/24/23 16:36 98.0 F 75 16 122/52 10/24/23 16:35 16 10/24/23 15:39 98.2 F 71 16 123/52 10/24/23 15:08 98.2 F 72 16 128/52 10/24/23 14:53 97.1 F L 58 L 16 125/73 10/24/23 14:38 98.4 F 65 16 130/61 10/24/23 14:23 98.1 F 63 16 144/85 10/24/23 14:08 98.3 F 57 L 16 133/80 10/24/23 13:53 63 16 154/70 10/24/23 13:39 60 16 99 10/24/23 13:38 97.0 F L 65 16 128/58 10/24/23 13:23 98.0 F 67 16 136/75 10/24/23 13:08 98.2 F 77 16 99/67 10/24/23 12:39 98.2 F 77 16 94/53 99 10/24/23 10:20 98.0 F 75 16 123/83 Intake and Output 10/24/23 10/25/23 10/25/23 22:59 06:59 14:59 Output Total 525 200 Balance -525 -200 Output: Urine 200 Output, Quantitative 525 Blood Loss - Exam Extremities: Present: normal Abdomen: Present: normal appearance, soft. Absent: distention, tenderness Incision: Present: normal, dry, intact Uterus: Present: normal, firm (Fundus is tonic and reportedly tender below the umbilicus.) - Labs Labs: Abnormal Lab Results - Last 24 Hours (Table) 10/25/23 Range/Units 05:51 RBC 3.61 L (3.80-5.40) m/uL Hgb 10.4 L (11.4-16.0) gm/dL Hct 31.4 L (34.0-46.0) % Assessment and Plan (1) Family planning Current Visit: Yes Status: Acute Code(s): Z30.09 - ENCOUNTER FOR OT GENERAL CNSL AND ADVICE ON CONTRACEPTION SNOMED Code(s): 978863060 (2) Previous section Current Visit: Yes Status: Acute Code(s): Z98.891 - HISTORY OF UTERINE SCAR FROM PREVIOUS SURGERY SNOMED Code(s): 030123170 (3) Term Current Visit: Yes Status: Acute Code(s): Z34.90 - ENCNTR FOR SUPRVSN OF NORMAL , UNSP, UNSP TRIMESTER SNOMED Code(s): 68055073 (4) S/P section Current Visit: Yes Status: Acute Code(s): Z98.891 - HISTORY OF UTERINE SCAR FROM PREVIOUS SURGERY SNOMED Code(s): 345524149 Plan: Continue routine and postoperative care. I have strongly encouraged the patient in the hallways routinely. I would anticipate discharge home tomorrow pending no complications.
--- NOTE | 2023-10-26 08:23 | P.PN ---
Progress Note - Text Progress Note Date: 10/26/23 Postoperative day 1 status post section under spinal anesthesia, and intrathecal morphine given for postoperative analgesia, patient doing well, there is no anesthesia related complications, Patient had no headache, vital signs stable , Assessment and plan= postop day 1 status post , doing well there is no anesthesia related complication.
[2023-10-26] MEDS: SIMETHICONE 80 MG CHEWABLE PO SCH (08:47)
--- NOTE | 2023-10-26 08:50 | P.DS ---
Providers Date of admission: 10/24/23 10:07 Expected date of discharge: 10/26/23 Attending physician: Mehran Tyler Primary care physician: Stated None - Discharge Diagnosis(es) (1) Family planning Current Visit: Yes Status: Acute (2) Previous section Current Visit: Yes Status: Acute (3) Term Current Visit: Yes Status: Acute (4) S/P section Current Visit: Yes Status: Acute Hospital Course: The patient is a 28-year-old 7 para 3033 admitted at 39 and one sevenths weeks by good dating parameters. She is admitted for repeat low transverse section having had 3 previous sections. She additionally requested intraoperative bilateral tubal occlusion with Filshie clips. Her was uncomplicated and group B strep status is negative. On labor and delivery, all signs reassuring with category 1 heart rate tracing. She was taken the operating room where she was delivered of a viable 7 lbs. 1 oz. baby girl with Apgars of 9 at 1 minute and 9 at 5 minutes. Her and postoperative course was unremarkable with vital signs being stable and her temperature was afebrile throughout. She was deemed stable for discharge on and postoperative day #2 and was discharged home to follow-up in the office in 2 weeks for an incision check and 6 weeks routinely. Discharge instructions included calling for any significantly increased bleeding or foul- smelling lochia, significantly increased fever or abdominal pain, perineal complaints, breast complaints, incisional complaints, or anything else that concerned her. She was additionally instructed to have nothing in the vagina for at least 6 weeks time to include intercourse and to abstain from any heavy lifting over the same period of time. She is less instructed to do no driving until off of all pain medications or 2 weeks' time, whichever came first. She understood all of her instructions and agrees to follow up as noted above. Discharge medications included continued vitamins as she has opted to breast-feed as well as [id number] analgesic pain medications. She was provided with a prescription for Tylenol 3, 1-2 by mouth every 6 hours when necessary pain, #20 dispensed with no refills. Maternal blood type is A+ and rubella status is immune. Discharge hemoglobin and hematocrit were 10.4 and 31.4 respectively. Procedures: #1. Repeat low transverse section #2. Intraoperative bilateral tubal occlusion with Filshie clips Patient Condition at Discharge: Stable Plan - Discharge Summary Discharge Rx Participant: No New Discharge Prescriptions: No Action No Known Home Medications Discharge Medication List No Known Home Medications 08/30/23 [History] Follow up Appointment(s)/Referral(s): Mehran Tyler MD [STAFF PHYSICIAN] - 2 Weeks Discharge Disposition: HOME SELF-CARE
[2023-10-26 10:23] VITALS: BP 124/71; PULSE 72; RESP 18; TEMP 97.9
== END 2023-10-26 10:45 | disposition home or self-care (01) | DRG 539 ==
LOC: 4FBP 10:07
PROVIDERS: ADMIT Obstetrics & Gynecology; ATTEND Obstetrics & Gynecology
PROC: 0UL70CZ Occlusion of Bilateral Fallopian Tubes with Extraluminal Device, Open Approach (ICD-10-PCS; principal; 2023-10-24 12:00)
PROC: 10D00Z1 Extraction of Products of Conception, Low, Open Approach (ICD-10-PCS; principal; 2023-10-24 12:00)
DX: O34.211 Maternal care for low transverse scar from previous cesarean delivery (principal); F41.9 Anxiety disorder, unspecified; Z30.2 Encounter for sterilization; Z3A.39 39 weeks gestation of pregnancy; Z37.0 Single live birth; O99.344 Other mental disorders complicating childbirth; Z28.310 Unvaccinated for COVID-19; M54.9 Dorsalgia, unspecified; N85.8 Other specified noninflammatory disorders of uterus; Z86.19 Personal history of other infectious and parasitic diseases; Z87.891 Personal history of nicotine dependence
CPT/HCPCS: 85025; 86850; 86900; 86901

== ENCOUNTER 2024-03-17 14:45 | Emergency (ER) | payer OTHER ==
[2024-03-17 15:24] VITALS: RESP 18; TEMP 97.7
--- NOTE | 2024-03-17 15:40 | ED ---
Headache HPI - General Chief Complaint: Headache Stated Complaint: R side numbness Time Seen by Provider: 03/17/24 15:29 Source: RN notes reviewed, old records reviewed Mode of arrival: ambulatory Limitations: no limitations - History of Present Illness Initial Comments: This is a 28-year-old female to ER for headache patient presents today for evaluation of headache which she feels is migraine headache secondary to symptoms of confusion blurry vision and right eye vision changes. MD Complaint: headache, "migraine" -: days(s) Onset Description: sudden, gradual Location: right, occipital Severity: moderate Severity scale (1-10): 7 Quality: aching, throbbing Consistency: constant Improves With: nothing Worsens With: none Associated Symptoms: nausea, vomiting Treatments Prior to Arrival: none - Related Data Home Medications Medication Instructions Recorded Confirmed No Known Home Medications 08/30/23 10/17/23 Allergies Allergy/AdvReac Type Severity Reaction Status Date / Time No Known Allergies Allergy Verified 03/17/24 15:24 Review of Systems ROS Statement: Those systems with pertinent positive or pertinent negative responses have been documented in the HPI. ROS Other: All systems not noted in ROS Statement are negative. Past Medical History Past Medical History: Seizure Disorder Additional Past Medical History / Comment(s): back pain, no seizure in more than 5 yrs, History of Any Multi-Drug Resistant Organisms: None Reported Past Surgical History: Section Past Anesthesia/Blood Transfusion Reactions: No Reported Reaction Past Psychological History: Anxiety, Depression Smoking Status: Vaper Past Alcohol Use History: None Reported Past Drug Use History: None Reported - Past Family History Father Family Medical History: No Reported History General Exam Limitations: no limitations General appearance: alert, in no apparent distress, anxious Head exam: Present: atraumatic, normocephalic, normal inspection Eye exam: Present: normal appearance, PERRL, EOMI. Absent: scleral icterus, conjunctival injection, periorbital swelling ENT exam: Present: normal exam, mucous membranes moist Neck exam: Present: normal inspection. Absent: tenderness, meningismus, lymphadenopathy Respiratory exam: Present: normal lung sounds bilaterally. Absent: respiratory distress, wheezes, rales, rhonchi, stridor Cardiovascular Exam: Present: regular rate, normal rhythm, normal heart sounds. Absent: systolic murmur, diastolic murmur, rubs, gallop, clicks GI/Abdominal exam: Present: soft, normal bowel sounds. Absent: distended, tenderness, guarding, rebound, rigid Extremities exam: Present: normal inspection, full ROM, normal capillary refill. Absent: tenderness, pedal edema, joint swelling, calf tenderness Back exam: Present: normal inspection Neurological exam: Present: alert, oriented X3, CN II-XII intact Psychiatric exam: Present: normal affect, normal mood Skin exam: Present: warm, dry, intact, normal color. Absent: rash Course Vital Signs 03/17/24 03/17/24 15:22 19:05 Temperature 97.7 F Pulse Rate 62 72 Respiratory 18 18 Rate Blood Pressure 158/82 141/84 O2 Sat by Pulse 99 98 Oximetry - Reevaluation(s) Reevaluation #1: 03/17/24 15:33 Records reviewed Reevaluation #2: Patient symptoms are improved here in the ER Reevaluation #3: Patient informed of results and questions are answered Reevaluation #4: Was pt. sent in by a medical professional or institution (, PA, MARKET RESEARCH ASSISTANT, urgent care, hospital, or senior care...) When possible be specific @ -no Did you speak to anyone other than the patient for history (EMS, parent, family, police, friend...)? What history was obtained from this source @ -no Did you review nursing and triage notes (agree or disagree)? Why? @ -agree Are old charts reviewed (outside hosp., previous admission, EMS record, old EKG, old radiological studies, urgent care reports/EKG's, senior care records)? Report findings @ -yes Differential Diagnosis (chest pain, altered mental status, abdominal pain women, abdominal pain men, vaginal bleeding, weakness, fever, dyspnea, syncope, head ache, dizziness, GI bleed, back pain, seizure, CVA, palpatations, mental health, musculoskeletal)? @ -prior EKG interpreted by me (3pts min.). @ -yes X-rays interpreted by me (1pt min.). @ -no CT interpreted by me (1pt min.). @ -yes negative for acute disease U/S interpreted by me (1pt. min.). @ -no What testing was considered but not performed or refused? (CT, X-rays, U/S, labs)? Why? @ -none What meds were considered but not given or refused? Why? @ -none Did you discuss the management of the patient with other professionals (professionals i.e. , PA, MARKET RESEARCH ASSISTANT, lab, RT, psych nurse, social service agency director, commercial loan coordinator, teacher, quarantine officer, case technician)? Give summary @ -no Was smoking cessation discussed for >3mins.? @ -no Was critical care preformed (if so, how long)? @ -no Were there social determinants of health that impacted care today? How? (Homelessness, low income, unemployed, alcoholism, drug addiction, transportation, low edu. Level, literacy, decrease access to med. care, shelter, rehab)? @ -none Was there de-escalation of care discussed even if they declined (Discuss DNR or withdrawal of care, Hospice)? DNR status @ -no What co-morbidities impacted this encounter? (DM, HTN, Smoking, COPD, CAD, Cancer, CVA, ARF, Chemo, Hep., AIDS, mental health diagnosis, sleep apnea, mor bid obesity)? @ -none Was patient admitted / discharged? Hospital course, mention meds given and ro hoh, prescriptions, significant lab abnormalities, going to OR and other pertinent info. @ - 28 female with migraine headache resolved here in the ER with normal imaging. Patient feels well can be discharged home Undiagnosed new problem with uncertain prognosis? @ -no Drug Therapy requiring intensive monitoring for toxicity (Heparin, Nitro, Insulin, Cardizem)? @ -no Were any procedures done? @ -no Diagnosis/symptom? @ -Headache migraine headache Acute, or Chronic, or Acute on Chronic? @ -Acute Uncomplicated (without systemic symptoms) or Complicated (systemic symptoms)? @ -Complicated Side effects of treatment? @ -no Exacerbation, Progression, or Severe Exacerbation? @ -exacerbation Poses a threat to life or bodily function? How? (Chest pain, [place], [place], pneumonia, PE, COPD, DKA, ARF, appy, cholecystitis, CVA, Diverticulitis, Homicidal, Suicidal, threat to staff... and all critical care pts) @ -yes with severe and worst CAVANAUGH of life Reevaluation #5: Differential Headache: Migraine, tension, cluster, carbon monoxide, central venous thrombosis, pension karma temporal arteritis, acute closure glaucoma, intercranial hemorrhage, mastoiditis, sinusitis, head injury, this is not meant to be an all-inclusive list. Medical Decision Making - Medical Decision Making 28 female with migraine headache resolved here in the ER with normal imaging. Patient feels well can be discharged home - Lab Data Result diagrams: 03/17/24 16:01 03/17/24 16:01 Lab Results 03/17/24 03/17/24 03/17/24 Range/Units 16:01 16:01 16:01 WBC 5.3 (3.8-10.6) k/uL RBC 4.31 (3.80-5.40) m/uL Hgb 12.4 (11.4-16.0) gm/dL Hct 38.7 (34.0-46.0) % MCV 89.7 (80.0-100.0) fL MCH 28.7 (25.0-35.0) pg MCHC 32.0 (31.0-37.0) g/dL RDW 13.2 (11.5-15.5) % Plt Count 305 (150-450) k/uL MPV 7.7 Neutrophils % 56 % Lymphocytes % 34 % Monocytes % 6 % Eosinophils % 3 % Basophils % 1 % Neutrophils # 3.0 (1.3-7.7) k/uL Lymphocytes # 1.8 (1.0-4.8) k/uL Monocytes # 0.3 (0-1.0) k/uL Eosinophils # 0.1 (0-0.7) k/uL Basophils # 0.0 (0-0.2) k/uL PT 10.3 (10.0-12.5) sec INR 0.9 (<1.2) APTT 26.3 (22.0-30.0) sec Sodium 143 (137-145) mmol/L Potassium 3.9 (3.5-5.1) mmol/L Chloride 107 (98-107) mmol/L Carbon Dioxide 28 (22-30) mmol/L Anion Gap 8 mmol/L BUN 11 (7-17) mg/dL Creatinine 0.69 (0.52-1.04) mg/dL Est GFR (CKD-EPI)AfAm >90 (>60 ml/min/1.73 sqM) Est GFR (CKD-EPI)NonAf >90 (>60 ml/min/1.73 sqM) Glucose 96 (74-99) mg/dL Plasma Lactic Acid [place] (0.7-2.0) mmol/L Calcium 9.4 (8.4-10.2) mg/dL Phosphorus 3.7 (2.5-4.5) mg/dL Magnesium 2.3 (1.6-2.3) mg/dL Total Bilirubin 0.7 (0.2-1.3) mg/dL AST 25 (14-36) U/L ALT 22 (4-34) U/L Alkaline Phosphatase 75 (38-126) U/L Troponin I (0.000-0.034) ng/mL NT-Pro-B Natriuret Pep 81 pg/mL Total Protein 7.2 (6.3-8.2) g/dL Albumin 4.4 (3.5-5.0) g/dL TSH 0.794 (0.465-4.680) mIU/L Urine Color Urine Appearance (Clear) Urine pH (5.0-8.0) Ur Specific [place] (1.001-1.035) Urine Protein (Negative) Urine Glucose (UA) (Negative) Urine Ketones (Negative) Urine Blood (Negative) Urine Nitrite (Negative) Urine Bilirubin (Negative) Urine Urobilinogen (<2.0) mg/dL Ur Leukocyte Esterase (Negative) Urine WBC (0-5) /hpf Ur Squamous Epith Cells (0-4) /hpf Urine Mucus (None) /hpf Urine HCG, Qual (Not Detectd) 03/17/24 03/17/24 03/17/24 Range/Units 16:01 16:01 18:00 WBC (3.8-10.6) k/uL RBC (3.80-5.40) m/uL Hgb (11.4-16.0) gm/dL Hct (34.0-46.0) % MCV (80.0-100.0) fL MCH (25.0-35.0) pg MCHC (31.0-37.0) g/dL RDW (11.5-15.5) % Plt Count (150-450) k/uL MPV Neutrophils % % Lymphocytes % % Monocytes % % Eosinophils % % Basophils % % Neutrophils # (1.3-7.7) k/uL Lymphocytes # (1.0-4.8) k/uL Monocytes # (0-1.0) k/uL Eosinophils # (0-0.7) k/uL Basophils # (0-0.2) k/uL PT (10.0-12.5) sec INR (<1.2) APTT (22.0-30.0) sec Sodium (137-145) mmol/L Potassium (3.5-5.1) mmol/L Chloride (98-107) mmol/L Carbon Dioxide (22-30) mmol/L Anion Gap mmol/L BUN (7-17) mg/dL Creatinine (0.52-1.04) mg/dL Est GFR (CKD-EPI)AfAm (>60 ml/min/1.73 sqM) Est GFR (CKD-EPI)NonAf (>60 ml/min/1.73 sqM) Glucose (74-99) mg/dL Plasma Lactic Acid [place] 0.9 (0.7-2.0) mmol/L Calcium (8.4-10.2) mg/dL Phosphorus (2.5-4.5) mg/dL Magnesium (1.6-2.3) mg/dL Total Bilirubin (0.2-1.3) mg/dL AST (14-36) U/L ALT (4-34) U/L Alkaline Phosphatase (38-126) U/L Troponin I <0.012 (0.000-0.034) ng/mL NT-Pro-B Natriuret Pep pg/mL Total Protein (6.3-8.2) g/dL Albumin (3.5-5.0) g/dL TSH (0.465-4.680) mIU/L Urine Color Yellow Urine Appearance Cloudy H (Clear) Urine pH 6.0 (5.0-8.0) Ur Specific [place] 1.040 H (1.001-1.035) Urine Protein 1+ H (Negative) Urine Glucose (UA) Negative (Negative) Urine Ketones Negative (Negative) Urine Blood Negative (Negative) Urine Nitrite Negative (Negative) Urine Bilirubin Negative (Negative) Urine Urobilinogen 4.0 (<2.0) mg/dL Ur Leukocyte Esterase Small H (Negative) Urine WBC 2 (0-5) /hpf Ur Squamous Epith Cells 6 H (0-4) /hpf Urine Mucus Many H (None) /hpf Urine HCG, Qual (Not Detectd) 03/17/24 Range/Units 18:00 WBC (3.8-10.6) k/uL RBC (3.80-5.40) m/uL Hgb (11.4-16.0) gm/dL Hct (34.0-46.0) % MCV (80.0-100.0) fL MCH (25.0-35.0) pg MCHC (31.0-37.0) g/dL RDW (11.5-15.5) % Plt Count (150-450) k/uL MPV Neutrophils % % Lymphocytes % % Monocytes % % Eosinophils % % Basophils % % Neutrophils # (1.3-7.7) k/uL Lymphocytes # (1.0-4.8) k/uL Monocytes # (0-1.0) k/uL Eosinophils # (0-0.7) k/uL Basophils # (0-0.2) k/uL PT (10.0-12.5) sec INR (<1.2) APTT (22.0-30.0) sec Sodium (137-145) mmol/L Potassium (3.5-5.1) mmol/L Chloride (98-107) mmol/L Carbon Dioxide (22-30) mmol/L Anion Gap mmol/L BUN (7-17) mg/dL Creatinine (0.52-1.04) mg/dL Est GFR (CKD-EPI)AfAm (>60 ml/min/1.73 sqM) Est GFR (CKD-EPI)NonAf (>60 ml/min/1.73 sqM) Glucose (74-99) mg/dL Plasma Lactic Acid [place] (0.7-2.0) mmol/L Calcium (8.4-10.2) mg/dL Phosphorus (2.5-4.5) mg/dL Magnesium (1.6-2.3) mg/dL Total Bilirubin (0.2-1.3) mg/dL AST (14-36) U/L ALT (4-34) U/L Alkaline Phosphatase (38-126) U/L Troponin I (0.000-0.034) ng/mL NT-Pro-B Natriuret Pep pg/mL Total Protein (6.3-8.2) g/dL Albumin (3.5-5.0) g/dL TSH (0.465-4.680) mIU/L Urine Color Urine Appearance (Clear) Urine pH (5.0-8.0) Ur Specific [place] (1.001-1.035) Urine Protein (Negative) Urine Glucose (UA) (Negative) Urine Ketones (Negative) Urine Blood (Negative) Urine Nitrite (Negative) Urine Bilirubin (Negative) Urine Urobilinogen (<2.0) mg/dL Ur Leukocyte Esterase (Negative) Urine WBC (0-5) /hpf Ur Squamous Epith Cells (0-4) /hpf Urine Mucus (None) /hpf Urine HCG, Qual Not Detected (Not Detectd) - EKG Data -: EKG Interpreted by Me (EKG is sinus 60 MN 145 QRS 105 QTc 490) - Radiology Data Radiology results: report reviewed (CT brain CT Negative for Acute Disease), image reviewed Disposition Clinical Impression: Migraine headache, Headache Disposition: HOME SELF-CARE Condition: Good Instructions (If sedation given, give patient instructions): Acute Headache (ED) Is patient prescribed a controlled substance at d/c from ED?: No Referrals: None,Stated [Primary Care Provider] - 1-2 days Time of Disposition: 19:00
[2024-03-17 16:15] LABS: Basophils % (A) 1 %; Eosinophils # (A) 0.1 k/uL (0-0.7); Eosinophils % (A) 3 %; HCT 38.7 % (34.0-46.0); HGB 12.4 gm/dL (11.4-16.0); Lymphocytes # (A) 1.8 k/uL (1.0-4.8); Lymphocytes % (A) 34 %; MCH 28.7 pg (25.0-35.0); MCV 89.7 fL (80.0-100.0); Mean Platelet Volume 7.7; Monocytes # (A) 0.3 k/uL (0-1.0); Monocytes % (A) 6 %; Neutrophils % (A) 56 %; Platelet Count 305 k/uL (150-450); RBC 4.31 m/uL (3.80-5.40); RDW 13.2 % (11.5-15.5); WBC 5.3 k/uL (3.8-10.6)
[2024-03-17] MEDS: SODIUM CHLORIDE 0.9% 1,000 ML IV STA (16:21)
[2024-03-17 16:23] LABS: INR 0.9 (<1.2); Partial Thromboplastin Time 26.3 sec (22.0-30.0); Prothrombin Time 10.3 sec (10.0-12.5)
[2024-03-17 16:32] LABS: ALT 22 U/L (4-34); AST 25 U/L (14-36); African American GFR (CKD) >90 (>60 ml/min/1.73 sqM); Albumin 4.4 g/dL (3.5-5.0); Alkaline Phosphatase 75 U/L (38-126); Anion Gap 8 mmol/L; Blood Urea Nitrogen 11 mg/dL (7-17); Calcium 9.4 mg/dL (8.4-10.2); Carbon Dioxide 28 mmol/L (22-30); Chloride 107 mmol/L (98-107); Glucose 96 mg/dL (74-99); Magnesium 2.3 mg/dL (1.6-2.3); Non-African American GFR(CKD) >90 (>60 ml/min/1.73 sqM); Phosphorus 3.7 mg/dL (2.5-4.5); Potassium 3.9 mmol/L (3.5-5.1); Sodium 143 mmol/L (137-145); Total Bilirubin 0.7 mg/dL (0.2-1.3); Total Protein 7.2 g/dL (6.3-8.2)
[2024-03-17 16:41] LABS: NT-Pro-B-Type Natriuretic Pept 81 pg/mL
[2024-03-17] MEDS: KETOROLAC 15 MG/ML 1 ML VIAL IVP STA (16:54)
[2024-03-17] MEDS: PROCHLORPERAZINE INJ 10 MG/2 ML VIAL IVP STA (16:55)
[2024-03-17] MEDS: diphenhydrAMINE 50 MG/ML 1 ML VIAL IVP STA (16:55)
[2024-03-17] MEDS: methylPREDNISolone SOD SUCCIN 250 MG in SODIUM CHLORIDE 0.9% 100 ML IVPB STA (18:07)
--- NOTE | 2024-03-17 18:20 | CT ---
EXAMINATION TYPE: CT brain wo con CT DLP: Combined DLP of 1681.7 mGycm, Automated exposure control for dose reduction was used. DATE OF EXAM: 03/17/2024 5:54 PM COMPARISON: 03/17/2024. CLINICAL INDICATION:Female, 28 years old with history of weakness, Pt to ED for evaluation of R sided numbness and R sided CAVANAUGH x1week. Pt reports nausea intermittently. TECHNIQUE: Brain: Axial CT images of the brain were obtained with coronal and sagittal reformats created and rev iewed. Contrast used: None. Oral contrast used: None. FINDINGS: Brain: Extra-axial spaces: No abnormal extra-axial fluid collections. Ventricular system: Within normal limits Cerebral parenchyma: No acute intraparenchymal hemorrhage or mass effect. The christine-white junction is well differentiated. Cerebellum: Unremarkable. Mass effect: No evidence of midline shift. Intracranial vasculature: unremarkable Soft tissues: Normal. Calvarium/osseous structures: No depressed skull fracture. Paranasal sinuses and mastoid air cells: Mild scattered paranasal sinus disease. Visualized orbits: Orbital contents are intact. IMPRESSION: No acute intracranial process.
[2024-03-17 18:21] LABS: Appearance,Urine Cloudy (Clear); Bilirubin,Urine Negative (Negative); Blood,Urine Negative (Negative); Color,Urine Yellow; Glucose,Urine (UA) Negative (Negative); Ketones,Urine Negative (Negative); Leukocyte Esterase,Urine Small (Negative); Mucus,Urine Many /hpf; Nitrite,Urine Negative (Negative); Protein,Urine 1+ (Negative); Squamous Epithelial Cell,Urine 6 /hpf (0-4); WBC,Urine 2 /hpf (0-5)
--- NOTE | 2024-03-17 18:22 | CT ---
EXAMINATION TYPE: CT angio COW [place] CT DLP: 1681.7 mGycm, Automated exposure control for dose reduction was used. DATE OF EXAM: 03/17/2024 6:12 PM COMPARISON: 03/17/2024. CLINICAL INDICATION:Female, 28 years old with history of cavanaugh, Pt to ED for evaluation of R sided numbn ess and R sided CAVANAUGH x1week. Pt reports nausea intermittently. TECHNIQUE: CT angio COW [place] Axially acquired helical CT angiogram was obtained. Axial im ages are supplemented with 3D reconstructions which were post-processed at an independent workstation . NASCET criteria used. Contrast used:65 ml mL of Isovue 370 with IV Contrast, none Oral contrast used: none FINDINGS: Vertebral arteries: The vertebral arteries are patent. Vertebral artery dominance: Codominant Basilar artery: The basilar artery is intact. The basilar artery bifurcation is normal. Internal Carotid arteries: The cervical, petrous, cavernous and supraclinoid segments are normal. YAMILETH: Patent with no evidence of aneurysm. ACOM: Present without evidence of aneurysm. MCA: Patent with no evidence of aneurysm. CHIROPRACTIC ASSISTANT: Patent with no evidence of aneurysm. PCOM: Hypoplastic bilaterally. Dural sinuses: Patent. IMPRESSION: No evidence of high-grade stenosis or intracranial aneurysm.
[2024-03-17] MEDS ORDERED: IBUPROFEN 600 MG STARTER PACK 4 TAB BTL PO STA (19:03)
[2024-03-17] MEDS ORDERED: ONDANSETRON 4 MG ODT STARTER PACK 2 TAB BTL PO STA (19:03)
[2024-03-17 19:05] VITALS: BP 141/84; PULSE 72
== END 2024-03-17 19:10 | disposition home or self-care (01) ==
LOC: EC 14:45
DX: G43.909 Migraine, unspecified, not intractable, without status migrainosus (principal); F17.290 Nicotine dependence, other tobacco product, uncomplicated
CPT/HCPCS: 36415; 93005; 83880; 80053; 83605; 83735; 84100; 84443; 84484; 85025; 85610; 85730; 81001; 81025; 70496; 70450; 99284; 96365; 96375 ×3; 96361; J1200; J0780; J1885; Q9967; J2919

== ENCOUNTER → 2024-04-10 | Outpatient (CLI) | payer OTHER ==
--- NOTE | 2024-04-10 15:49 | US ---
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 FINDINGS: Hyperechoic area at patients AOC = 0.9 x 0.5 x 0.7 cm IMPRESSION: Hyperechoic lesion within the muscle in the area of concern possibly intramuscular lipoma . Consider confirmation with MRI and/or CT imaging.
== END | disposition home or self-care (01) ==
LOC: RADUSWWP 13:55
PROVIDERS: ATTEND Family Medicine
DX: L08.9 Local infection of the skin and subcutaneous tissue, unspecified (principal)

== ENCOUNTER → 2024-06-06 | Outpatient (CLI) | payer OTHER ==
--- NOTE | 2024-06-06 10:25 | XR ---
EXAMINATION TYPE: XR chest 2V DATE OF EXAM: 06/06/2024 COMPARISON: NONE TECHNIQUE: PA and lateral views submitted. HISTORY: Rule out TB FINDINGS: The lungs are clear and there is no pneumothorax, pleural effusion, or focal pneumonia. Heart size normal and no overt failure. Osseous structures intact. No pleural or parenchymal calcifications. IMPRESSION: 1. No acute process. [facility], , 06/06/2024 10:23 AM
== END | disposition home or self-care (01) ==
LOC: RADXRMAIN 09:47
PROVIDERS: ATTEND Dermatology MOHS-Micrographic Surgery
DX: Z04.9 Encounter for examination and observation for unspecified reason (principal)
CPT/HCPCS: 71046

== ENCOUNTER → 2024-07-31 | Outpatient (CLI) | payer OTHER ==
--- NOTE | 2024-07-31 22:27 | MR ---
EXAMINATION TYPE: MR knee RT wo con DATE OF EXAM: 07/31/2024 COMPARISON: Right knee x-ray February 22, 2023 HISTORY: Right knee pain for several years TECHNIQUE: Multiplanar, multisequence images of the knee is performed without IV contrast. FINDINGS: MEDIAL MENISCUS: Anterior and posterior horns are intact without tear. LATERAL MENISCUS: Anterior and posterior horns are intact without tear. CRUCIATE LIGAMENTS: The anterior and posterior cruciate ligaments are intact and unremarkable. COLLATERAL LIGAMENTS: The medial collateral ligament and lateral collateral ligament complex are inta ct and unremarkable. EXTENSOR MECHANISM: Visualized quadriceps and patellar tendons are intact. EFFUSION: No significant suprapatellar joint effusion. POPLITEAL CYST: No popliteal/albright cyst. TRICOMPARTMENT SPACES: Mild tricompartment joint space loss. No significant spurring. CARTILAGE: Tricompartmental articular cartilage is preserved. BONE MARROW SIGNAL: No focal abnormal marrow signal is appreciated. OTHER: No additional significant abnormality is appreciated. IMPRESSION: No meniscal or ligamentous tear is seen. [facility], , 07/31/2024 10:24 PM
== END | disposition home or self-care (01) ==
LOC: RADMRIMAIN 20:30
PROVIDERS: ATTEND Family Medicine
DX: M25.561 Pain in right knee (principal); G89.29 Other chronic pain